=== PATIENT | male | born 1945 | race Caucasian/White ===

== ENCOUNTER 2020-12-28 11:19 | Emergency (ER) | payer MEDICARE, MEDICAID ==
[~2020-12-28] VITALS: Ht 172.7 cm; Wt 101.2 kg
[2020-12-28] MEDS ORDERED: IV NS 0.9% 1,000 ML BAG IV ONE (12:00)
--- NOTE | 2020-12-28 12:01 | NUR ---
[facility] TO ER BED 7. AAOX4. NOT IN RESP DISTRESS. BASELINE O2 USER VIA NC @ 3LPM. BED BOUND. BROUGHT INFOR FEVER THAT STARTED YESTERDAY. PT IS AEBRILE AT THE TIME OF ASSESSMENT. HE WAS GIVEN TYLENOL 650MG @ THE SNF @ 1000. PT IS NOTED SATTING @ 98% ON 3LPM W/O DISTRESS. WAS AT THE BEDSIDE FOR EVAL. ORDERS RECEIVED, NOTED AND CARRIED OUT.
[2020-12-28 12:03] LABS: BASOPHILS % (AUTO) 0.6 % (0.0-2.0); EOSINOPHILS % (AUTO) 2.8 % (0.0-6.0); HEMATOCRIT 34 % (39-51); LYMPHOCYTES # (AUTO) 0.3 K/uL (0.8-4.8); LYMPHOCYTES % (AUTO) 7.2 % (20.0-44.0); MEAN CORPUSCULAR HGB CONC 33 g/dl (31.0-36.0); MEAN CORPUSCULAR VOLUME 93 fL (80-96); MONOCYTES # (AUTO) 0.5 K/uL (0.1-1.30); MONOCYTES % (AUTO) 11.6 % (2.0-12.0); NEUTROPHILS # (AUTO) 3.6 K/uL (1.8-8.9); NEUTROPHILS % (AUTO) 77.8 % (43.0-81.0); PLATELET COUNT (AUTO) 451 K/uL (150-450); WHITE BLOOD COUNT (AUTO) 4.7 K/uL (4.3-11.0)
[2020-12-28 12:12] LABS: CALCIUM, SERUM 8.6 mg/dL (8.5-10.1); CARBON DIOXIDE 28 mmol/L (21-32); CHLORIDE 98 mmol/L (98-107); CREATININE 0.5 mg/dL (0.6-1.3); GLUCOSE 111 mg/dL (74-106); SODIUM SERUM 136 mmol/L (136-145); UREA NITROGEN, BLOOD 13 mg/dL (7-18)
[2020-12-28 12:18] LABS: ALANINE AMINOTRANSFERASE 18 U/L (12-78); ALBUMIN 2.1 g/dL (3.4-5.0); ALKALINE PHOSPHATASE 66 U/L (46-116); ASPARTATE AMINOTRANSFERASE 17 U/L (15-37); BILIRUBIN,DIRECT 0.1 mg/dL (0.0-0.2); BILIRUBIN,TOTAL 0.4 mg/dL (0.2-1.0); TOTAL PROTEIN, SERUM 6.9 g/dL (6.4-8.2)
[2020-12-28] MEDS ORDERED: LIDOCAINE 2% JEL UROJET 10 ML MM ONE (12:23)
--- NOTE | 2020-12-28 12:30 | NUR ---
URINE COLLECTED VIA IN & OUT CATH WITH STRICT STERILE TECHNIQUE OBSERVED DURING THE PROCEDURE.
[2020-12-28 13:11] LABS: BILIRUBIN,URINE NEGATIVE (NEGATIVE); COLOR,URINE YELLOW (YELLOW); LEUKOCYTE ESTERASE ,URINE NEGATIVE (NEGATIVE); NITRITE, URINE NEGATIVE (NEGATIVE); PH,URINE 5.5 (5.0-8.0); PROTEIN,URINE NEGATIVE (NEGATIVE); UGLUCOSE NEGATIVE (NEGATIVE); UROBILINOGEN,URINE 0.2 EU/dL (0.2)
--- NOTE | 2020-12-28 13:36 | NUR ---
TITI FERNANDO [phone] SPEAKING WITH PAWEL
--- NOTE | 2020-12-28 13:42 | NUR ---
CALLED TRANSPORT [facility] WITH 30 MIN ETA PER SHEEBA.
--- NOTE | 2020-12-28 14:30 | NUR ---
IV removed. Catheter intact and site benign. Pressure and 4x4 applied to site. No bleeding noted.
--- NOTE | 2020-12-28 14:30 | NUR ---
REPORT GIVEN TO SNEHAL DEMARCO FOR MAGDIEL
--- NOTE | 2020-12-28 14:33 | NUR ---
[id number] AT BEDSIDE FOR PT TRANSPORT BACK TO [facility]. REPORT GIVEN.
[2020-12-28 15:02] VITALS: BP 121/64
--- NOTE | 2020-12-28 15:02 | NUR ---
PT LEFT PN SHAHNAZ WITH 2 SEAFOOD MANAGER IN STABLE CONDITION. NAD NOTED.
== END 2020-12-28 15:03 ==
LOC: ER 11:25
DX: R50.9 Fever, unspecified (principal); Z20.822 Contact with and (suspected) exposure to COVID-19; I69.354 Hemiplegia and hemiparesis following cerebral infarction affecting left non-dominant side; Z85.89 Personal history of malignant neoplasm of other organs and systems; I48.91 Unspecified atrial fibrillation; Z79.01 Long term (current) use of anticoagulants; J44.9 Chronic obstructive pulmonary disease, unspecified; F41.9 Anxiety disorder, unspecified; K21.9 Gastro-esophageal reflux disease without esophagitis; R91.8 Other nonspecific abnormal finding of lung field; R94.31 Abnormal electrocardiogram [ECG] [EKG]
CPT/HCPCS: 36415; 71045; 80048; 80076; 81003; 83605; 84484; 85025; 87040 ×2; 87426; 93005; 96360; 99285; J3490; J7030; C9803

== ENCOUNTER 2021-01-05 10:00 | Inpatient (IN) | payer MEDICARE, OTHER ==
[~2021-01-05] VITALS: Ht 175.3 cm; Wt 62.6 kg
[2021-01-05] VITALS (19 sets, daily range): BP systolic 86–124; BP diastolic 46–88
--- NOTE | 2021-01-05 10:00 | NUR ---
PT [id number] [facility] C/O SOB AND LOW O2 DESATURATION. 88% ON RA. PT IS AAOX3, NOTED MILD RESPIRATORY DISTRESS, HOOKED TO O2 VIA NC AT 4 LPM AND SHUTTLE THREADER, KEPT RESTED AND COMFORTABLE. WILL CONTINUE TO MONITOR.
--- NOTE | 2021-01-05 10:00 | NUR ---
PT IV LINE ESTABLISHED BLOOD DRAWN AND SENT TO LAB.
--- NOTE | 2021-01-05 10:01 | NUR ---
SEEN AND EXAMINED BY .
--- NOTE | 2021-01-05 10:14 | NUR ---
MOVE SHEET SUBMITTED AND CALLED FOR TELE BED.
--- NOTE | 2021-01-05 10:26 | NUR ---
COVID SPECIMEN OBTAINED AND SENT TO LAB.
[2021-01-05 10:27] LABS: BASOPHILS % (AUTO) 0.7 % (0.0-2.0); EOSINOPHILS % (AUTO) 0.1 % (0.0-6.0); HEMATOCRIT 34 % (39-51); LYMPHOCYTES # (AUTO) 0.4 K/uL (0.8-4.8); LYMPHOCYTES % (AUTO) 6.6 % (20.0-44.0); MEAN CORPUSCULAR HGB CONC 33 g/dl (31.0-36.0); MEAN CORPUSCULAR VOLUME 92 fL (80-96); MONOCYTES # (AUTO) 0.4 K/uL (0.1-1.30); MONOCYTES % (AUTO) 6.5 % (2.0-12.0); NEUTROPHILS # (AUTO) 5.3 K/uL (1.8-8.9); NEUTROPHILS % (AUTO) 86.1 % (43.0-81.0); PLATELET COUNT (AUTO) 566 K/uL (150-450); RED BLOOD CELL COUNT(AUTO) 3.66 MIL/uL (4.5-6.0); WHITE BLOOD COUNT (AUTO) 6.2 K/uL (4.3-11.0)
[2021-01-05] MEDS ORDERED: LACT-209 GT (10:38)
[2021-01-05] MEDS ORDERED: CHOL100062 PO (10:38)
[2021-01-05] MEDS ORDERED: CETI-108 GT (10:38)
[2021-01-05] MEDS ORDERED: HYDR4TAB57 GT (10:38)
[2021-01-05] MEDS ORDERED: GABA-532 GT (10:38)
[2021-01-05] MEDS ORDERED: LANS30CA56 GT (10:38)
[2021-01-05] MEDS ORDERED: AMIN30LI27 GT (10:38)
[2021-01-05] MEDS ORDERED: POVI100M TP (10:38)
[2021-01-05] MEDS ORDERED: HYDR28.32 TP (10:38)
[2021-01-05] MEDS ORDERED: DULO30CA2 GT (10:38)
[2021-01-05] MEDS ORDERED: POLY17PO4 GT (10:38)
[2021-01-05] MEDS ORDERED: FERR300L GT (10:38)
[2021-01-05] MEDS ORDERED: CLOT12CR TP (10:38)
[2021-01-05] MEDS ORDERED: ACET650S26 GT ×2 (10:38)
[2021-01-05] MEDS ORDERED: DOCU50LI GT (10:38)
[2021-01-05] MEDS ORDERED: LIDO30JE4 MM (10:38)
[2021-01-05] MEDS ORDERED: ONDA4TAB5 GT (10:38)
[2021-01-05] MEDS ORDERED: CYAN500T64 GT (10:38)
[2021-01-05] MEDS ORDERED: NORM210S MM (10:38)
[2021-01-05] MEDS ORDERED: APIX5TAB GT (10:38)
[2021-01-05 10:42] LABS: ALANINE AMINOTRANSFERASE 22 U/L (12-78); ALBUMIN 2.1 g/dL (3.4-5.0); ALKALINE PHOSPHATASE 63 U/L (46-116); ASPARTATE AMINOTRANSFERASE 24 U/L (15-37); BILIRUBIN,DIRECT 0.1 mg/dL (0.0-0.2); BILIRUBIN,TOTAL 0.4 mg/dL (0.2-1.0); CALCIUM, SERUM 8.6 mg/dL (8.5-10.1); CARBON DIOXIDE 28 mmol/L (21-32); CHLORIDE 100 mmol/L (98-107); CREATININE 0.8 mg/dL (0.6-1.3); GLUCOSE 132 mg/dL (74-106); POTASSIUM 4.6 mmol/L (3.5-5.1); SODIUM SERUM 133 mmol/L (136-145); UREA NITROGEN, BLOOD 17 mg/dL (7-18)
--- NOTE | 2021-01-05 10:48 | NUR ---
CALLED [facility], SPEAKING WITH DR. COFFMAN.
[2021-01-05] MEDS ORDERED: DEXAMETHASONE SOD PHOSPHATE 10 MG/ML VIAL ONE (10:53)
[2021-01-05] MEDS ORDERED: VANCOMYCIN 1 GM in IV D5W 250 ML IV ONE (11:00)
[2021-01-05] MEDS ORDERED: DEXAMETHASONE SOD PHOSPHATE 10 MG/ML VIAL IV ONE (11:00)
[2021-01-05] MEDS ORDERED: PIPERACILLIN /TAZOBACTAM 3.375 G in IV D5W 50 ML IV ONE (11:00)
--- NOTE | 2021-01-05 12:13 | NUR ---
PAN FROM [facility] CALLED ABOUT PT.
[2021-01-05] MEDS ORDERED: ONDANSETRON HCL/PF 4 MG/2 ML VIAL IVP PRN (12:30)
[2021-01-05] MEDS ORDERED: ACETAMINOPHEN 325 MG TABLET PO PRN (12:30)
[2021-01-05] MEDS ORDERED: HYDROCODONE/APAP 5/325MG TABLET GT PRN (12:30)
[2021-01-05] MEDS ORDERED: MORPHINE SULFATE INJ 2 MG/ML DISP.SYRIN IV PRN (12:30)
[2021-01-05] MEDS ORDERED: ACETAMINOPHEN 650 MG/20.3 ML UDC GT PRN ×2 (12:30)
[2021-01-05] MEDS ORDERED: CT SWABBABLE VALVE TRANS SET 1 EA INFUS.SET MC ONE (12:33)
[2021-01-05] MEDS ORDERED: IOHEXOL-350 100 ML VIAL IV ONE (12:33)
[2021-01-05] MEDS ORDERED: IV NS 0.9% 250 ML IV ONE (12:33)
--- NOTE | 2021-01-05 12:50 | NUR ---
PT IS WHEELED TO CT SCAN VIA [facility].
[2021-01-05] MEDS: GABAPENTIN 100 MG CAPSULE GT SCH ×2 (13:00→17:12)
--- NOTE | 2021-01-05 13:30 | NUR ---
RT PT CAME IN ON NC 6L, REFUSES TO COUGH, REMOVING OXYGEN REFUSES TO BE SUCTIONED AWARE STARTED OH HFNC
--- NOTE | 2021-01-05 13:30 | NUR ---
PT O2 SAT DROP TO 80% ON NC AT 6LPM REPORTED TO LEXX FU.
--- NOTE | 2021-01-05 13:35 | NUR ---
PT ON HIGH FLOW NC ORDERED BY .
--- NOTE | 2021-01-05 13:40 | NUR ---
CALLED ICU FOR REPORT RN NOT AVAILABLE. WILL CALL BACK AFTER 10MINS.
--- NOTE | 2021-01-05 13:48 | NUR ---
GOT ICU BED 257
--- NOTE | 2021-01-05 14:00 | NUR ---
REPORT GIVEN TO SNEHAL GREER FOR MAGDIEL.
--- NOTE | 2021-01-05 14:30 | NUR ---
GAME MODERATOR NOTES PATIENT ADMITTED FROM ER ON HFNC 100% FLOW RATE. PATIENT A/O WITH CONFUSION, NO ACUTE RESPIRATORY DISTRESS. BEDSIDE MONITOR SHOWS HR 84 BP 123/76 RR 27. O2 SAT 100% WITH HIGH FLOW. ADMISSION ASSESSMENT COMPLETED. 2 RN SKIN ASSESSMENT COMPLETED AND PICTURE TAKEN PER POLICY AND DRESSING APPLIED. WOUND CONSULT ORDERED. PÉREZ CATHETER INSERTED FOR STRICT I&O. GTUBE INTACT AND CURRENTLY PT IS NPO. SCD IS APPLIED FOR DVT PREVENTION PROTOCOL. CHECKED IV SITE AND FLUSHED WELL. BILATERAL SOFT WRIST RESTRAINT IS APPLIED DUE TO PT IS AGITATED AND ATTEMPT TO REMOVE HIGH FLOW CANULA. OFFERED SUCTION BUT PT REFUSED. SPOKE WITH DAUGHTER(KHALIDA) [phone] AND SHE STATED THAT PT IS FULL CODE.
[2021-01-05] MEDS: methylPREDNISolone SOD SUCC 40 MG/ML VIAL IV SCH ×2 (15:15→17:02)
[2021-01-05] MEDS: PANTOPRAZOLE 40 MG VIAL IV SCH (15:15)
[2021-01-05] MEDS: IV NS 0.9% 250 ML IV PRN (16:00)
[2021-01-05 16:28] LABS: FERRITIN 107 ng/mL (8-388)
[2021-01-05 16:51] LABS: IRON, SERUM 16 ug/dl (50-175); TOTAL IRON BINDING CAPACITY 272 ug/dl (250-450)
[2021-01-05] MEDS ORDERED: APIXABAN 5 MG TABLET GT SCH (17:00)
[2021-01-05] MEDS: PIPERACILLIN /TAZOBACTAM 3.375 G in IV D5W 50 ML IV SCH ×2 (17:01→23:53)
[2021-01-05] MEDS: DOCUSATE SODIUM LIQ 100 MG/10 ML UDC GT SCH (17:12)
--- NOTE | 2021-01-05 17:37 | NUR ---
RN NOTE CHECKED RESTRAINT SITE. OFFERED RELEASE AND PROVIDED PASSIVE RANGE OF MOTION. VSS. WILL KEEP MONITORING AT THIS TIME.
--- NOTE | 2021-01-05 18:00 | NUR ---
RN NOTES ECHO SCAN DONE VIA US DELICATESSEN CLERK, EF-25%-30% . US TECH WILL NOTIFY YOUTH SPECIALIST Dr SMITH ABOUT ECHO RESULT.
--- NOTE | 2021-01-05 18:55 | NUR ---
RN NOTE REASSESSED THE PATIENT. NO RESPIRATORY DISTRESS NOTED. HIGH FLOW RATE IS SAME FROM PREVIOUS RATE. PT'S O2 SAT IS 99%. VSS. RESTING CALM AND STABLE. ECHO IS DONE AND EF 25%. [employer] WILL NOTIFY TO MD ABOUT THE RESULT.
[2021-01-05] MEDS: VANCOMYCIN 0.75 GM in IV D5W 250 ML IV SCH (22:24)
[2021-01-05] MEDS: DULOXETINE HCL 30 MG CAPSULE.DR GT SCH (22:24)
[2021-01-06] VITALS (34 sets, daily range): BP systolic 91–129; BP diastolic 45–75
[2021-01-06 04:32] LABS: HEMATOCRIT 34 % (39-51); HEMOGLOBIN 11.2 g/dL (13.5-17.5); LYMPHOCYTES # (AUTO) 0.3 K/uL (0.8-4.8); LYMPHOCYTES % (AUTO) 9.2 % (20.0-44.0); MEAN CORPUSCULAR HGB CONC 33 g/dl (31.0-36.0); MEAN CORPUSCULAR VOLUME 92 fL (80-96); MONOCYTES # (AUTO) 0.1 K/uL (0.1-1.30); MONOCYTES % (AUTO) 3.4 % (2.0-12.0); NEUTROPHILS # (AUTO) 2.8 K/uL (1.8-8.9); NEUTROPHILS % (AUTO) 87.4 % (43.0-81.0); PLATELET COUNT (AUTO) 556 K/uL (150-450); RED BLOOD CELL COUNT(AUTO) 3.73 MIL/uL (4.5-6.0); WHITE BLOOD COUNT (AUTO) 3.2 K/uL (4.3-11.0)
[2021-01-06 04:39] LABS: ALBUMIN 1.9 g/dL (3.4-5.0); BILIRUBIN,TOTAL 0.5 mg/dL (0.2-1.0); CALCIUM, SERUM 8.7 mg/dL (8.5-10.1); CREATININE 0.8 mg/dL (0.6-1.3); POTASSIUM 4.6 mmol/L (3.5-5.1)
[2021-01-06 04:46] LABS: THYROID STIMULATING HORMONE 0.818 uIU/mL (0.358-3.74)
[2021-01-06 04:56] LABS: D-DIMER 0.75 mg/L(FEU (0.17-0.50)
[2021-01-06] MEDS: PIPERACILLIN /TAZOBACTAM 3.375 G in IV D5W 50 ML IV SCH ×3 (05:43→17:24)
--- NOTE | 2021-01-06 07:30 | NUR ---
ICU/RN PT IS AWAKE ,ALERT,ORIENTED.ON HI-FLOW 02,SAT O2-100%.V/S STABLE ,AFEBRILE.NO PAIN REPORTED AT THIS TIME.F/C DRAINING WITH YELLOW URINE.G-TUBE CLAMPED.PT IS NPO.NEED SWALLOW EVAL.LABS REVIEW. NOTIFIED.
--- NOTE | 2021-01-06 08:15 | NUR ---
WOUND CARE CONSULT: RECEIVED CONSULT FROM LEATHER BELT MAKER. PT PRESENTS WITH MULTIPLE WOUNDS AND SKIN ISSUES PRESENT ON ADMISSION INCLUDING REDNESS WITH OPEN SKIN TO RT SHOULDER, DRY CRUSTING TO RT NECK AREA, SACRAL STAGE 3 ULCER, RASH TO PERINEAL AREA, FRAGILE DISCOLORED SKIN TO EXTREMITIES AND FOOT WOUNDS WHICH ARE DRY. RECOMMEND SURGICAL AND DPM CONSULTS. RECOMMENDATIONS MADE FOR SKIN PROTECTION AND WOUND CARE. DISCUSSED WITH NURSING STAFF AND LEATHER BELT MAKER. FOAM IN USE FOR LOWER EXREMITY DRY WOUNDS AT THIS TIME. DEFER TO PMD FOR POSSIBLE SURGICAL AND DPM CONSULTS. PT IS ON SEBASTIAN ISOFLEX LOW AIRLOSS BED. IN AGREEMENT WITH PLAN OF CARE. Addendum: 01/06/21 at 0818 by MICHELE PEREZ WNDNU Amended: Links added.
[2021-01-06] MEDS: FERROUS SULFATE UDC 300 MG/5 ML UDC PO SCH (08:27)
[2021-01-06] MEDS: CYANOCOBALAMIN 500 MCG TABLET GT SCH (08:27)
[2021-01-06] MEDS: methylPREDNISolone SOD SUCC 40 MG/ML VIAL IV SCH ×3 (08:27→16:28)
[2021-01-06] MEDS: DOCUSATE SODIUM LIQ 100 MG/10 ML UDC GT SCH ×2 (08:27→16:28)
[2021-01-06] MEDS: CHOLECALCIFEROL 1,000 UNIT TABLET (VIT D3) PO SCH (08:27)
[2021-01-06] MEDS: PANTOPRAZOLE 40 MG VIAL IV SCH (08:27)
[2021-01-06] MEDS: cetrizine 10 MG TABLET GT SCH (08:27)
[2021-01-06] MEDS: POLYETHYLENE GLYCOL 3350 17 GM POWD.PACK GT SCH (08:27)
[2021-01-06] MEDS: GABAPENTIN 100 MG CAPSULE GT SCH ×3 (08:28→16:28)
[2021-01-06] MEDS: ASPIRIN 81 MG TAB.CHEW PO SCH (08:28)
[2021-01-06] MEDS: ENOXAPARIN SODIUM 60 MG/0.6 ML DISP.SYRIN SQ SCH ×2 (08:29→21:00)
[2021-01-06] MEDS ORDERED: Z GUARD REMEDY 2 OZ OINT TP PRN (08:30)
[2021-01-06] MEDS: OSMOLITE 1.2 CAL 1,000 ML LIQUID GT PRN (08:57)
--- NOTE | 2021-01-06 09:00 | NUR ---
ICU/RN DUE MEDS ARE GIVEN ORDERED. REPOSITION FOR COMFORT.
[2021-01-06] MEDS: VANCOMYCIN 0.75 GM in IV D5W 250 ML IV SCH ×2 (10:04→23:00)
[2021-01-06] MEDS: HYDROGEL DRESSING 90 GM TUBE TP SCH (10:04)
[2021-01-06] MEDS: CLOTRIMAZOLE 1% 15 GM TUBE TP SCH ×2 (10:05→16:29)
[2021-01-06] MEDS: Z GUARD REMEDY 2 OZ OINT TP SCH (10:06)
--- NOTE | 2021-01-06 10:54 | NUR ---
WOUND CARE: PER DR FERNANDO, PODIATRY CONSULT CALLED TO DR SINGH.
[2021-01-06] MEDS ORDERED: ALBUTEROL FS 2.5 MG/0.5 ML VIAL.NEB NEB PRN (11:00)
[2021-01-06] MEDS ORDERED: IPRATROPIUM NEB FS 0.5 MG/2.5 ML AMPUL.NEB NEB PRN (11:00)
--- NOTE | 2021-01-06 11:00 | NUR ---
ICU/RN DR FERNANDO SEEN THE PT. NEW ORDERS RECEIVED.
[2021-01-06] MEDS: ALBUTEROL FS 2.5 MG/0.5 ML VIAL.NEB NEB SCH ×3 (11:01→20:16)
[2021-01-06] MEDS: IPRATROPIUM NEB FS 0.5 MG/2.5 ML AMPUL.NEB NEB SCH ×3 (11:01→20:16)
[2021-01-06] MEDS: HYDROMORPHONE 1 MG/1 ML DISP.SYRIN IV PRN (11:54)
[2021-01-06] MEDS: IV NS 0.9% 250 ML IV PRN (15:41)
--- NOTE | 2021-01-06 16:29 | NUR ---
ICU/RN PT REFUSED ALL EVENING MEDS AND PM CARE. CHARGE NURSE NOTIFIED.MD WILL BE NOTIFIED.
--- NOTE | 2021-01-06 19:27 | NUR ---
PHYSICIAN OFFICE ASSISTANT OPENING NOTES: Rec'd pt in bed, A&Ox3. On 5LPM NC tolerating well. No resp distress noted. SR w/ PVC's on tele monitor. GT site intact, patent and flushed w/ Osmolite infusing at 40ml/hr. Minimal residual noted. Right hand #18, RAC #18 patent and flushed. Dressings c/d/i. Right chest wall portacath noted. Yi catheter in place, patent and draining urine via gravity. No pain noted at this time. Safety measures in place. Will continue to monitor.
--- NOTE | 2021-01-06 20:34 | NUR ---
FILM EDITOR SUPERVISOR NOTE: Pt refused breathing tx. Risks and benefits explained by RT and RN and pt continued to refuse.
[2021-01-06] MEDS: DULOXETINE HCL 30 MG CAPSULE.DR GT SCH (21:57)
--- NOTE | 2021-01-06 21:57 | NUR ---
SOAKER SODA WORKER NOTE: Pt refused all medications tonight including IV ATB. Explained risks and benefits of medications and continued to refuse. 2127: Paged Dr. Rosado and gave update on pt's refusal. Dr. Rosado stated to "inform his daughter". 2129: Called daughterJeanne who spoke with pt. 2155: Pt still refusing all medications. Dr. Rosado updated. Charge nurse also aware.
[2021-01-07] VITALS (17 sets, daily range): BP systolic 91–139; BP diastolic 34–83
--- NOTE | 2021-01-07 00:15 | NUR ---
AND RESCUE FIRE FIGHTER CRASH FIRE NOTE: Pt refused bed bath and linen change at this time.
[2021-01-07] MEDS: ALBUTEROL FS 2.5 MG/0.5 ML VIAL.NEB NEB SCH ×4 (01:14→19:25)
[2021-01-07] MEDS: IPRATROPIUM NEB FS 0.5 MG/2.5 ML AMPUL.NEB NEB SCH ×4 (01:14→19:25)
--- NOTE | 2021-01-07 03:37 | NUR ---
AIRPLANE REFUELER NOTE: Pt's rivera noted to be leaking, pt wet. Bed bath & linen change rendered. Pt verbally abusive during cleaning. Charge nurse at bedside. Pt yelling and screaming, "get the fuck out of my room" and "shut the fuck up". Explained to pt that this type of behavior is not tolerated and pt stated "I pay your wages, get the fuck out of my room". Pt now clean and resting. Will continue to monitor.
--- NOTE | 2021-01-07 04:17 | NUR ---
CONTRACT CLERK NOTE: Pt refused 0400 temp check
[2021-01-07 04:29] LABS: HEMATOCRIT 34 % (39-51); HEMOGLOBIN 10.7 g/dL (13.5-17.5); LYMPHOCYTES # (AUTO) 0.3 K/uL (0.8-4.8); MEAN CORPUSCULAR HGB CONC 32 g/dl (31.0-36.0); MEAN CORPUSCULAR VOLUME 92 fL (80-96); MONOCYTES # (AUTO) 0.8 K/uL (0.1-1.30); MONOCYTES % (AUTO) 7.4 % (2.0-12.0); NEUTROPHILS % (AUTO) 89.6 % (43.0-81.0); PLATELET COUNT (AUTO) 577 K/uL (150-450); RED BLOOD CELL COUNT(AUTO) 3.65 MIL/uL (4.5-6.0); WHITE BLOOD COUNT (AUTO) 11.1 K/uL (4.3-11.0)
[2021-01-07 04:38] LABS: CREATININE 0.9 mg/dL (0.6-1.3); POTASSIUM 5.4 mmol/L (3.5-5.1)
[2021-01-07] MEDS: PIPERACILLIN /TAZOBACTAM 3.375 G in IV D5W 50 ML IV SCH ×4 (05:12→17:05)
--- NOTE | 2021-01-07 07:30 | NUR ---
FAST FOOD ASSISTANT RESTAURANT MANAGER OPENING NOTE PT IN BED, A/Ox3, BREATHING 4L NC, SPO2 88-90%. INCREASED TO 5L, WILL MONITOR, NO SOB OR RESP DISTRESS NOTED, BREATHING EVEN AND UNLABORED. PT DENIES PAIN. PT ON BEDSIDE MONITOR SR W OCCASIONAL PVC's. PT GTUBE AUSCULTATED FOR POSITIVE PLACEMENT, FLUSHED, AND PATENT, NO RESIDUALS, CURRENTLY ON GTF OSMOLITE 1.2 @ 40ML/HR. PT RT HAND #18 FLUSHED AND INTACT, SL. PT RAC #18 FLUSHED AND INTACT, TKO. PT RCW PORT A CATH INTACT. PT PÉREZ CATH DRAINING CLEAR YELLOW URINE VIA GRAVITY. PT SACRAL WOUND NOTED, DRSG C/D/I. ALL PT SAFETY PRECAUTIONS IN PLACE, WILL CONT TO MONITOR
[2021-01-07] MEDS ORDERED: FUROSEMIDE 20 MG/2 ML VIAL IV ONE (08:30)
[2021-01-07] MEDS: ENOXAPARIN SODIUM 60 MG/0.6 ML DISP.SYRIN SQ SCH (08:40)
[2021-01-07] MEDS: PANTOPRAZOLE 40 MG VIAL IV SCH (08:41)
[2021-01-07] MEDS: CYANOCOBALAMIN 500 MCG TABLET GT SCH (08:41)
[2021-01-07] MEDS: ASPIRIN 81 MG TAB.CHEW PO SCH (08:41)
[2021-01-07] MEDS: cetrizine 10 MG TABLET GT SCH (08:41)
[2021-01-07] MEDS: methylPREDNISolone SOD SUCC 40 MG/ML VIAL IV SCH ×3 (08:42→17:04)
[2021-01-07] MEDS: GABAPENTIN 100 MG CAPSULE GT SCH ×3 (08:42→17:04)
[2021-01-07] MEDS: DOCUSATE SODIUM LIQ 100 MG/10 ML UDC GT SCH ×2 (08:42→17:05)
[2021-01-07] MEDS: POLYETHYLENE GLYCOL 3350 17 GM POWD.PACK GT SCH (08:42)
[2021-01-07] MEDS: CHOLECALCIFEROL 1,000 UNIT TABLET (VIT D3) PO SCH (08:42)
[2021-01-07] MEDS: FERROUS SULFATE UDC 300 MG/5 ML UDC PO SCH (08:42)
[2021-01-07] MEDS: CLOTRIMAZOLE 1% 15 GM TUBE TP SCH ×2 (08:43→17:05)
[2021-01-07] MEDS: HYDROGEL DRESSING 90 GM TUBE TP SCH (08:43)
[2021-01-07] MEDS: Z GUARD REMEDY 2 OZ OINT TP SCH (08:43)
[2021-01-07 09:07] LABS: *SPE A/G RATIO 0.6 (0.7-1.7); *SPE ALBUMIN 2.2 g/dL (2.9-4.4); *SPE ALPHA-1-GLOBULIN 0.4 g/dL (0.0-0.4); *SPE ALPHA-2-GLOBULIN 1.1 g/dL (0.4-1.0); *SPE BETA GLOBULIN 0.8 g/dL (0.7-1.3); *SPE M-SPIKE 0.8 g/dL (Not Observed); *SPEGAMMA GLOBULIN 1.7 g/dL (0.4-1.8)
--- NOTE | 2021-01-07 09:30 | NUR ---
RN N OTE PT REFUSING CERTAIN MEDS AND SPEECH EVAL. NOT COMPLIANT WITH CERTAIN TREATMENT PROCEDURES, A LOT OF PT EDUCATION HAS TAKEN PLACE
[2021-01-07] MEDS: VANCOMYCIN 0.75 GM in IV D5W 250 ML IV SCH (10:57)
[2021-01-07] MEDS: APIXABAN 5 MG TABLET PO SCH ×2 (10:58→21:17)
--- NOTE | 2021-01-07 11:45 | NUR ---
RN NOTE PT REPORT GIVEN TO SNEHAL LUIS
--- NOTE | 2021-01-07 13:00 | NUR ---
RN NOTE PT TRANSFERRED TO 314-1. SNEHAL LUIS, RECEIVED PT. PT STABLE, NC 5L, NO RESP DISTRESS OR SOB
[2021-01-07] MEDS: HYDROMORPHONE 1 MG/1 ML DISP.SYRIN IV PRN (13:42)
[2021-01-07] MEDS ORDERED: APIXABAN 5 MG TABLET PO SCH (17:00)
--- NOTE | 2021-01-07 20:00 | NUR ---
ADVERTISING LAYOUT WORKER OPENING NOTE: RECEIVED PATIENT AWAKE IN BED, BED IN LOW POSITION, CALL LIGHTS WITHIN REACH, NO COMPLAIN OF PAIN AND DISCOMFORT AT THIS TIME, A/OX 3 ON PÉREZ CATHETER WITH NG TUBE at 40ML PER HOUR INFUSING WELL, ON TELE MONITORING WITH, READING OF SR WITH PVC HR 68, NO COMPLAIN OF ANY DISCOMFORT ALL NEEDS MET, WILL CONTINUE TO MONITOR.
[2021-01-07] MEDS: DULOXETINE HCL 30 MG CAPSULE.DR GT SCH (21:16)
[2021-01-07] MEDS: VANCOMYCIN 1 GM in IV D5W 250 ML IV SCH (21:18)
--- NOTE | 2021-01-07 22:00 | NUR ---
MS RN OPENING NOTE PT AWAKE IN BED AT THIS TIME. AOX3, ABLE TO MAKE NEEDS KNOWN. NO SOB NOTED. NO C/O PAIN AT THIS TIME, NO S/O ANY ACUTE DISTRESS NOTED. RESPIRATIONS EVEN AND UNLABORED, STABLE ON 3L OXYGEN VIA NC . IV ACCESS RAC #18 AND RH #18 . PÉREZ CATHETER DRAING AND PEG TUNBE INTACT RUNNING AT 40ML/HR. SAFETY PRECAUTIONS IN PLACE AND MAINTAINED AT ALL TIMES. BED IN LOWEST LOCKED POSITION, HOB ELEVATED, SIDE RAILS UP X2, CALL LIGHT AND TABLE WITHIN REACH. WILL CONTINUE TO MONITOR.
--- NOTE | 2021-01-07 23:00 | NUR ---
VEHICLE DISMANTLER OPENING NOTES: PATIENT TRASFER UNDER THE CARE OF SNEHAL WU , NO COMPLAIN OF PAIN AND DISCOMFORT, ON STABLE CONDITION, WILL CONTINUE TO MONITOR
[2021-01-08] VITALS: BP 136/65
[2021-01-08] MEDS: PIPERACILLIN /TAZOBACTAM 3.375 G in IV D5W 50 ML IV SCH ×5 (00:46→23:57)
[2021-01-08] MEDS: ALBUTEROL FS 2.5 MG/0.5 ML VIAL.NEB NEB SCH ×4 (01:30→19:30)
[2021-01-08] MEDS: IPRATROPIUM NEB FS 0.5 MG/2.5 ML AMPUL.NEB NEB SCH ×4 (01:30→19:30)
[2021-01-08 04:00] VITALS: BP 153/96
[2021-01-08] MEDS: IV NS 0.9% 250 ML IV PRN (06:00)
--- NOTE | 2021-01-08 06:00 | NUR ---
RN CLOSING NOTE PT IS IN BED AND AWAKE. NO SOB, NO PAIN. WILL ENDORSE TO ONCOMING NURSE FOR MAGDIEL..
[2021-01-08 07:13] LABS: HEMATOCRIT 39 % (39-51); HEMOGLOBIN 12.4 g/dL (13.5-17.5); LYMPHOCYTES # (AUTO) 0.4 K/uL (0.8-4.8); LYMPHOCYTES % (AUTO) 3.7 % (20.0-44.0); MEAN CORPUSCULAR HGB CONC 32 g/dl (31.0-36.0); MEAN CORPUSCULAR VOLUME 92 fL (80-96); MONOCYTES # (AUTO) 0.5 K/uL (0.1-1.30); MONOCYTES % (AUTO) 4.8 % (2.0-12.0); NEUTROPHILS # (AUTO) 8.9 K/uL (1.8-8.9); NEUTROPHILS % (AUTO) 91.5 % (43.0-81.0); PLATELET COUNT (AUTO) 621 K/uL (150-450); RED BLOOD CELL COUNT(AUTO) 4.25 MIL/uL (4.5-6.0); WHITE BLOOD COUNT (AUTO) 9.7 K/uL (4.3-11.0)
[2021-01-08 07:27] LABS: CALCIUM, SERUM 9.3 mg/dL (8.5-10.1); CREATININE 0.8 mg/dL (0.6-1.3); POTASSIUM 4.3 mmol/L (3.5-5.1)
--- NOTE | 2021-01-08 07:33 | NUR ---
RN NOTES ENDORSED BY COUNTY PROGRAM TECHNICIAN RN IN BED RESTING, AWAKE AND VERBALLY RESPONSIVE. BREATHING EVEN AND UNLABORED, ON 3L O2 VIA NC, NO RESPIRATORY DISTRESS. IV LINE ON RIGHT HAND PULLED OUT BY PATIENT PRIOR TO REPORT. GT INTACT W/ OSMOLITE FEEDING. PÉREZ CATH IN PLACE DRAINING LIGHT WILTON-COLORED URINE. SAFETY MEASURES IN PLACE. WILL CONTINUE TO MONITOR.
[2021-01-08 08:00] VITALS: BP 133/68
[2021-01-08 08:59] LABS: CHOLESTEROL 179 mg/dL (<200); HDL CHOLESTEROL 35 mg/dL (40-60); LDL 125 mg/dL (0-99); TRIGLYCERIDES 72 mg/dL (30-150)
[2021-01-08] MEDS: CLOTRIMAZOLE 1% 15 GM TUBE TP SCH ×2 (09:00→16:23)
[2021-01-08] MEDS: Z GUARD REMEDY 2 OZ OINT TP SCH (09:00)
[2021-01-08] MEDS: HYDROGEL DRESSING 90 GM TUBE TP SCH (09:00)
--- NOTE | 2021-01-08 10:40 | NUR ---
RN NOTES SPOKE W/ LOS, PHARMACIST; INFORMED ABOUT PATIENT'S POSITIVE MRSA NARES RESULT. RECOMMENDED BACTROBAN TOP SUMMER FOR MRSA OF R NARE.
[2021-01-08] MEDS: GABAPENTIN 100 MG CAPSULE GT SCH ×3 (10:48→16:22)
[2021-01-08] MEDS: PANTOPRAZOLE 40 MG/PACK PACK GT SCH (10:48)
[2021-01-08] MEDS: POLYETHYLENE GLYCOL 3350 17 GM POWD.PACK GT SCH (10:48)
[2021-01-08] MEDS: APIXABAN 5 MG TABLET GT SCH ×2 (10:49→16:22)
[2021-01-08] MEDS: CHOLECALCIFEROL 1,000 UNIT TABLET (VIT D3) GT SCH (10:49)
[2021-01-08] MEDS: methylPREDNISolone SOD SUCC 40 MG/ML VIAL IV SCH ×3 (10:50→16:22)
[2021-01-08] MEDS: cetrizine 10 MG TABLET GT SCH (10:50)
[2021-01-08] MEDS: FERROUS SULFATE UDC 300 MG/5 ML UDC GT SCH (10:50)
[2021-01-08] MEDS: CYANOCOBALAMIN 500 MCG TABLET GT SCH (10:50)
[2021-01-08] MEDS: ASPIRIN 81 MG TAB.CHEW GT SCH (10:50)
[2021-01-08] MEDS: DULOXETINE HCL 30 MG CAPSULE.DR GT SCH (10:50)
[2021-01-08] MEDS: VANCOMYCIN 1 GM in IV D5W 250 ML IV SCH ×2 (10:51→21:12)
[2021-01-08] MEDS: LOSARTAN POTASSIUM 50 MG TABLET GT SCH ×2 (10:51→21:12)
[2021-01-08] MEDS: DOCUSATE SODIUM LIQ 100 MG/10 ML UDC GT SCH ×2 (10:51→16:22)
[2021-01-08] MEDS: OSMOLITE 1.2 CAL 1,000 ML LIQUID GT PRN (12:28)
--- NOTE | 2021-01-08 12:34 | NUR ---
RN NOTES GT FLUSHED; FEEDING BAG CHANGED. GT SITE IS INTACT AND PATENT.
[2021-01-08] MEDS: MUPIROCIN OINT 2% 22 GM TUBE TP SCH ×2 (15:45→21:12)
[2021-01-08 16:00] VITALS: BP 128/68
--- NOTE | 2021-01-08 18:12 | NUR ---
RN NOTES SEEN RESTING IN BED, EYES CLOSED. GT W/ CONTINUOUS FEEDING OF OSMOLITE AT 40ML/HR; FLUSHED FOR PATENCY. IV LINE ON RAC/RFA INTACT AND PATENT. F/C DRAINING YELLOW-COLORED URINE. SAFETY MEASURES MAINTAINED.
--- NOTE | 2021-01-08 19:45 | NUR ---
TENTER FEEDER NOTES PATIENT RESTING IN BED. ALERT AND ORIENTED X 3. BREATHING EVEN AND UNLABORED ON 3L NC. SHOWS NO SIGNS OF ACUTE RESPIRATORY DISTRESS. NO ACUTE PAIN. IV CLEAN DRY AND INTACT. FC RUNNING CLEAN YELLOW URINE. GTUBE RUNNING OSMOLITE 40ML/HR. NO RESIDUALS. SAFETY PRECAUTIONS IN PLACE. BED IN LOWEST POSITION, LOCKED, AND CALL LIGHT KEPT WITHIN REACH. WILL CONTINUE TO MONITOR.
[2021-01-08 20:00] VITALS: BP 120/67
--- NOTE | 2021-01-08 21:50 | NUR ---
INTERNAL COMBUSTION ENGINE ASSEMBLER NOTES PATIENT REFUSING TO RECEIVE TREATMENT. IV IS CURRENTLY LEAKING AND REFUSED NEW IV. UNABLE TO GIVE BAG OF VANCOMYCIN. EDUCATED REASON FOR REQUIRING NEW IV PT CONTINUE TO REFUSED IV INSERTION.
[2021-01-08 22:00] VITALS: BP 120/67
[2021-01-09] VITALS: BP 114/61
[2021-01-09] MEDS: ALBUTEROL FS 2.5 MG/0.5 ML VIAL.NEB NEB SCH ×4 (01:06→19:30)
[2021-01-09] MEDS: IPRATROPIUM NEB FS 0.5 MG/2.5 ML AMPUL.NEB NEB SCH ×4 (01:06→19:30)
[2021-01-09 05:00] VITALS: BP 127/70
[2021-01-09] MEDS: PIPERACILLIN /TAZOBACTAM 3.375 G in IV D5W 50 ML IV SCH ×4 (05:12→23:21)
--- NOTE | 2021-01-09 06:34 | NUR ---
CASINO SLOT SUPERVISOR NOTES PATIENT, ASLEEP, ALERT AND ORIENTED X 3. BREATHING EVEN AND UNLABORED ON 3L NC. SHOWS NO SIGNS OF ACUTE RESPIRATORY DISTRESS. NO ACUTE PAIN. IV CLEAN DRY AND INTACT. FC RUNNING CLEAN YELLOW URINE. GTUBE RUNNING OSMOLITE 40ML/HR. NO RESIDUALS. REFUSED MORNING LAB DRAW. ALL DUE MEDICATIONS GIVEN. ALL NEEDS ATTENDED TO. SAFETY PRECAUTIONS IN PLACE. BED IN LOWEST POSITION, LOCKED, AND CALL LIGHT KEPT WITHIN REACH. WILL ENDORSE TO ONCOMING NURSE.
--- NOTE | 2021-01-09 07:20 | NUR ---
RN NOTES SEEN PATIENT RESTING IN BED, AWAKE AND VERBALLY RESPONSIVE. ALERT AND ORIENTED X 3, ABLE TO MAKE NEEDS KNOWN. BREATHING EVEN AND UNLABORED ON 3L NC, NO RESPIRATORY DISTRESS NOTED. IV LINE INTACT. F/C IN PLACE, DRAINING CLEAN YELLOW URINE. G-TUBE INTACT, W/ FEEDING OF OSMOLITE AT 40ML/HR. NO RESIDUALS. REFUSED MORNING LABS PER PICKER AND SORTER LOAD AND UNLOAD RN. SAFETY PRECAUTIONS IN PLACE. WILL CONTINUE TO MONITOR.
[2021-01-09 08:00] VITALS: BP 110/67
[2021-01-09] MEDS: APIXABAN 5 MG TABLET GT SCH ×2 (09:21→16:31)
[2021-01-09] MEDS: FERROUS SULFATE UDC 300 MG/5 ML UDC GT SCH (09:22)
[2021-01-09] MEDS: POLYETHYLENE GLYCOL 3350 17 GM POWD.PACK GT SCH (09:22)
[2021-01-09] MEDS: DOCUSATE SODIUM LIQ 100 MG/10 ML UDC GT SCH ×2 (09:22→16:29)
[2021-01-09] MEDS: methylPREDNISolone SOD SUCC 40 MG/ML VIAL IV SCH ×3 (09:22→16:29)
[2021-01-09] MEDS: CYANOCOBALAMIN 500 MCG TABLET GT SCH (09:23)
[2021-01-09] MEDS: LOSARTAN POTASSIUM 50 MG TABLET GT SCH ×2 (09:23→23:22)
[2021-01-09] MEDS: CHOLECALCIFEROL 1,000 UNIT TABLET (VIT D3) GT SCH (09:23)
[2021-01-09] MEDS: PANTOPRAZOLE 40 MG/PACK PACK GT SCH (09:23)
[2021-01-09] MEDS: GABAPENTIN 100 MG CAPSULE GT SCH ×3 (09:23→16:30)
[2021-01-09] MEDS: ASPIRIN 81 MG TAB.CHEW GT SCH (09:23)
[2021-01-09] MEDS: cetrizine 10 MG TABLET GT SCH (09:23)
[2021-01-09] MEDS: CLOTRIMAZOLE 1% 15 GM TUBE TP SCH ×2 (09:24→16:29)
[2021-01-09] MEDS: HYDROGEL DRESSING 90 GM TUBE TP SCH (09:25)
[2021-01-09] MEDS: HYDROGEL DRESSING 90 GM TUBE TP PRN (09:25)
[2021-01-09] MEDS: Z GUARD REMEDY 2 OZ OINT TP SCH (09:28)
[2021-01-09] MEDS: MUPIROCIN OINT 2% 22 GM TUBE TP SCH ×2 (09:31→23:23)
[2021-01-09] MEDS: VANCOMYCIN 1 GM in IV D5W 250 ML IV SCH (09:31)
--- NOTE | 2021-01-09 11:27 | NUR ---
RN NOTES GT SITE CLEANSED AND DRESSING CHANGED. GTUBE FLUSHED FOR PATENCY.
[2021-01-09 12:00] VITALS: BP 127/74
--- NOTE | 2021-01-09 12:39 | NUR ---
RN NOTES NO RESIDUAL NOTED FROM FEEDING. SPOKE W/ REPAIRER ENGINE PRODUCTION AND CONFIRMED ABOUT GOAL RATE FOR PATIENT OF 55ML/HR; PATIENT HAS NO NAUSEA/VOMITING/DIARRHEA AT THIS TIME AND WILL INCREASE FEEDING RATE TOLERATED. REPAIRER ENGINE PRODUCTION OK W/ PLAN AT THIS TIME.
[2021-01-09] MEDS: OSMOLITE 1.2 CAL 1,000 ML LIQUID GT PRN (12:48)
--- NOTE | 2021-01-09 14:36 | NUR ---
RN NOTES PATIENT WAS SEEN BY VICKY FLANAGAN ONCO; PATIENT TO DECIDE IF HE WOULD LIKE TO DO BIOPSY NEXT WEEK.
[2021-01-09 16:00] VITALS: BP 110/61
[2021-01-09 16:31] LABS: CALCIUM, SERUM 8.9 mg/dL (8.5-10.1); CREATININE 0.7 mg/dL (0.6-1.3); POTASSIUM 4.5 mmol/L (3.5-5.1)
--- NOTE | 2021-01-09 18:42 | NUR ---
RN NOTES PATIENT IN BED RESTING, AWAKE AND VERBALLY RESPONSIVE. ABLE TO TITRATE O2 TO 2L/MIN VIA NC, NO RESPIRATORY DISTRESS; O2 SAT >95%. GT FEEDING CONTINUOUS AND INCREASED RATE TO 55ML/HR; NO RESIDUAL NOTED AT THIS TIME. NO COMPLAINT OF NAUSEA/VOMITING/DIARRHEA. IV LINE INTACT. SAFETY MEASURES MAINTAINED. WILL ENDORSE TO PROFESSOR OF LAW RN FOR MAGDIEL.
--- NOTE | 2021-01-09 19:30 | NUR ---
RN OPENING NOTE BEDSIDE REPORT RECIEVED BUBBA HAY RN. PATIENT IN BED, AWAKE AND VERBALLY RESPONSIVE. CURRENTLY REFUSING THE DICONTINUATION OF HIS FC. PT STATES, "I WANT TO TALK TO MY DAUGHTER ABOUT IT BEFORE WE DO THAT." INFORMED THAT IT IS RECOMMENDED TO REMOVE TO REDUCE RISK OF URINE INFECTION. PT STILL REFUSING AT THIS TIME. O2 SET TO 2L/MIN VIA NC, NO RESPIRATORY DISTRESS DENIES SOB. GT FEEDING CONTINUOUS AND INCREASED RATE TO 55ML/HR; RESIDUAL IS LESS THEN 20 AT THIS TIME AT THIS TIME. NO COMPLAINT OF NAUSEA/VOMITING/DIARRHEA. IV LINE INTACT. SAFETY MEASURES IN PLACE WILL CONT TO MONITOR.
--- NOTE | 2021-01-09 20:00 | NUR ---
per slab grinder patient refusing vancomycin trough. bonifacio with patient explained the test patient agrees to have vancomycin drawn. call made to slab grinder state they will return to take lab after finishing other patient.
[2021-01-09 21:03] VITALS: BP 133/65
--- NOTE | 2021-01-09 23:00 | NUR ---
PATIENT AGREEABLE TO FC REMOVAL. FC REMOVED PATIENT TOLERATED PROCIEDURE WELL. PT HAD PADS PLACD FOR INCONTINENCE. WILL CONT TO MONITOR AND GIVE PERINEAL CARE PRN.
[2021-01-09] MEDS: DULOXETINE HCL 30 MG CAPSULE.DR GT SCH (23:22)
[2021-01-10] MEDS: VANCOMYCIN 1 GM in IV D5W 250 ML IV SCH ×2 (00:13→12:38)
[2021-01-10 00:22] VITALS: BP 151/98
[2021-01-10] MEDS: IPRATROPIUM NEB FS 0.5 MG/2.5 ML AMPUL.NEB NEB SCH ×4 (01:30→19:30)
[2021-01-10] MEDS: ALBUTEROL FS 2.5 MG/0.5 ML VIAL.NEB NEB SCH ×4 (01:30→19:30)
--- NOTE | 2021-01-10 04:14 | NUR ---
PHARMACIST CALLED INFORMED THAT VANCO WAS GIVEN 3 HOURS LATE DUE TO DELAY IN RECIEVING TROUGH LEVEL. STATES HE WILL RETIME THE NEXT DOSE OF VANCO TO NOON.
[2021-01-10 04:36] VITALS: BP 122/61
[2021-01-10] MEDS: PIPERACILLIN /TAZOBACTAM 3.375 G in IV D5W 50 ML IV SCH ×3 (05:46→17:20)
--- NOTE | 2021-01-10 07:15 | NUR ---
RN OPENING NOTE Received patient asleep in bed calm and relaxed no signs of distress on NC 2L tolerating well. Tele reading SR has GTF running Osmolite 55ml/hr no residual. S/P debridement of r. ankle wound no signs if bleeding. R hand #24 flushes well. Safety measures maintained. Call light within reach. Will cont to monitor.
[2021-01-10 08:00] VITALS: BP 140/74
[2021-01-10] MEDS: DOCUSATE SODIUM LIQ 100 MG/10 ML UDC GT SCH ×2 (08:56→16:20)
[2021-01-10] MEDS: FERROUS SULFATE UDC 300 MG/5 ML UDC GT SCH (08:56)
[2021-01-10] MEDS: cetrizine 10 MG TABLET GT SCH (08:56)
[2021-01-10] MEDS: CHOLECALCIFEROL 1,000 UNIT TABLET (VIT D3) GT SCH (08:56)
[2021-01-10] MEDS: LOSARTAN POTASSIUM 50 MG TABLET GT SCH ×2 (08:56→20:48)
[2021-01-10] MEDS: GABAPENTIN 100 MG CAPSULE GT SCH ×3 (08:57→16:20)
[2021-01-10] MEDS: POLYETHYLENE GLYCOL 3350 17 GM POWD.PACK GT SCH (08:57)
[2021-01-10] MEDS: CYANOCOBALAMIN 500 MCG TABLET GT SCH (08:57)
[2021-01-10] MEDS: PANTOPRAZOLE 40 MG/PACK PACK GT SCH (08:57)
[2021-01-10] MEDS: ASPIRIN 81 MG TAB.CHEW GT SCH (08:57)
[2021-01-10] MEDS: APIXABAN 5 MG TABLET GT SCH ×2 (08:58→16:26)
[2021-01-10] MEDS ORDERED: methylPREDNISolone SOD SUCC 40 MG/ML VIAL IV SCH (09:00)
[2021-01-10] MEDS: MUPIROCIN OINT 2% 22 GM TUBE TP SCH ×2 (09:14→21:28)
[2021-01-10] MEDS: Z GUARD REMEDY 2 OZ OINT TP SCH (09:15)
[2021-01-10] MEDS: HYDROGEL DRESSING 90 GM TUBE TP SCH (09:15)
[2021-01-10] MEDS: CLOTRIMAZOLE 1% 15 GM TUBE TP SCH ×2 (09:15→16:36)
[2021-01-10 12:20] LABS: BASOPHILS # (AUTO) 0.1 K/uL (0.0-0.2); BASOPHILS % (AUTO) 0.9 % (0.0-2.0); HEMATOCRIT 37 % (39-51); HEMOGLOBIN 11.7 g/dL (13.5-17.5); LYMPHOCYTES # (AUTO) 0.3 K/uL (0.8-4.8); MEAN CORPUSCULAR HGB CONC 32 g/dl (31.0-36.0); MEAN CORPUSCULAR VOLUME 92 fL (80-96); MONOCYTES # (AUTO) 0.7 K/uL (0.1-1.30); MONOCYTES % (AUTO) 7.8 % (2.0-12.0); NEUTROPHILS # (AUTO) 8.5 K/uL (1.8-8.9); NEUTROPHILS % (AUTO) 88.3 % (43.0-81.0); PLATELET COUNT (AUTO) 520 K/uL (150-450); RED BLOOD CELL COUNT(AUTO) 4.01 MIL/uL (4.5-6.0); WHITE BLOOD COUNT (AUTO) 9.6 K/uL (4.3-11.0)
[2021-01-10] MEDS: OSMOLITE 1.2 CAL 1,000 ML LIQUID GT PRN (12:38)
[2021-01-10 12:47] LABS: CALCIUM, SERUM 8.4 mg/dL (8.5-10.1); CREATININE 0.6 mg/dL (0.6-1.3); POTASSIUM 4.1 mmol/L (3.5-5.1)
[2021-01-10 16:00] VITALS: BP 130/62
[2021-01-10] MEDS: methylPREDNISolone SOD SUCC 40 MG/ML VIAL IV SCH (16:19)
[2021-01-10] MEDS: HYDROMORPHONE 1 MG/1 ML DISP.SYRIN IV PRN ×2 (16:40→22:45)
--- NOTE | 2021-01-10 18:39 | NUR ---
RN CLOSING NOTE Patient in bed awake on NC 2L tolerating well. No co pain or discomfort at this time. GTF running Osmolite 55ml/hr tolerating well. Vital signs within normal limits. All due meds given. No adverse effects on ATB therapy. Safety measures maintained. Will endorse to solder deposit operator nurse for luke.
--- NOTE | 2021-01-10 19:39 | NUR ---
MS RN NOTES Patient in bed awake on NC 2L tolerating well. No co pain or discomfort at this time. GTF running Osmolite 55ml/hr tolerating well. Vital signs within normal limits. Safety measures maintained. Will continue to monitor.
[2021-01-10 20:00] VITALS: BP 93/54
[2021-01-10] MEDS: DULOXETINE HCL 30 MG CAPSULE.DR GT SCH (21:28)
[2021-01-10 22:35] VITALS: BP 105/61
--- NOTE | 2021-01-10 22:45 | NUR ---
MS RN NOTES PT REPORTED PAIN 8/10 ON ANUMERIC PAIN SCALE DILAUDID GIVEN AND TOLERATED WELL. WILL CONTINUE TO MONITOR.
[2021-01-11] MEDS: PIPERACILLIN /TAZOBACTAM 3.375 G in IV D5W 50 ML IV SCH ×3 (00:18→12:14)
[2021-01-11] MEDS: VANCOMYCIN 1 GM in IV D5W 250 ML IV SCH ×2 (00:20→12:14)
[2021-01-11] MEDS: IPRATROPIUM NEB FS 0.5 MG/2.5 ML AMPUL.NEB NEB SCH ×3 (01:17→13:30)
[2021-01-11] MEDS: ALBUTEROL FS 2.5 MG/0.5 ML VIAL.NEB NEB SCH ×3 (01:17→13:30)
[2021-01-11] MEDS: OSMOLITE 1.2 CAL 1,000 ML LIQUID GT PRN (05:57)
[2021-01-11] MEDS: HYDROMORPHONE 1 MG/1 ML DISP.SYRIN IV PRN ×3 (06:14→14:47)
--- NOTE | 2021-01-11 06:50 | NUR ---
MS RN NOTES PATIENT RESTING IN BED, AWAKE AND VERBALLY RESPONSIVE. ALERT AND ORIENTED X 3, ABLE TO MAKE NEEDS KNOWN. BREATHING EVEN AND UNLABORED ON 4L NC, NO RESPIRATORY DISTRESS NOTED. IV LINE INTACT. G-TUBE INTACT, W/ FEEDING OF OSMOLITE AT 55ML/HR. ALL NURSING NEEDS MET ALL DUE MEDS GIVEN AND TOLERATED WELL. SAFETY PRECAUTIONS IN PLACE. WILL ENDORSE CARE TO DAY SHIFT NURSE.
--- NOTE | 2021-01-11 07:46 | NUR ---
MS RN OPENING NOTES RECEIVED PATIENT AWAKE IN BED, ALERT AND ORIENTED X 3. NO SIGNS OR SYMPTOMS OF DISTRESS NOTED. IV ACCESS RWRIST#24 PATENT AND INTACT. NO SOB. SAFETY MEASURES MAINTAINED WITH BED AT LOWEST POSITION AND SIDE RAILS UP X 2. CALL LIGHT AND BEDSIDE TABLE WITHIN REACH. WILL CONTINUE TO MONITOR PATIENT THROUGHOUT SHIFT.
[2021-01-11 09:00] VITALS: BP 107/56
[2021-01-11] MEDS: LOSARTAN POTASSIUM 50 MG TABLET GT SCH (09:00)
[2021-01-11] MEDS: GABAPENTIN 100 MG CAPSULE GT SCH ×2 (09:05→12:53)
[2021-01-11] MEDS: CYANOCOBALAMIN 500 MCG TABLET GT SCH (09:06)
[2021-01-11] MEDS: POLYETHYLENE GLYCOL 3350 17 GM POWD.PACK GT SCH (09:06)
[2021-01-11] MEDS: CHOLECALCIFEROL 1,000 UNIT TABLET (VIT D3) GT SCH (09:06)
[2021-01-11] MEDS: DOCUSATE SODIUM LIQ 100 MG/10 ML UDC GT SCH (09:06)
[2021-01-11] MEDS: PANTOPRAZOLE 40 MG/PACK PACK GT SCH (09:06)
[2021-01-11] MEDS: cetrizine 10 MG TABLET GT SCH (09:06)
[2021-01-11] MEDS: methylPREDNISolone SOD SUCC 40 MG/ML VIAL IV SCH (09:06)
[2021-01-11] MEDS: ASPIRIN 81 MG TAB.CHEW GT SCH (09:06)
[2021-01-11] MEDS: FERROUS SULFATE UDC 300 MG/5 ML UDC GT SCH (09:06)
[2021-01-11] MEDS: APIXABAN 5 MG TABLET GT SCH (09:08)
[2021-01-11] MEDS: CLOTRIMAZOLE 1% 15 GM TUBE TP SCH (09:54)
[2021-01-11] MEDS: HYDROGEL DRESSING 90 GM TUBE TP PRN (09:54)
[2021-01-11] MEDS: MUPIROCIN OINT 2% 22 GM TUBE TP SCH (09:55)
[2021-01-11] MEDS: HYDROGEL DRESSING 90 GM TUBE TP SCH (09:56)
[2021-01-11] MEDS: Z GUARD REMEDY 2 OZ OINT TP SCH (09:57)
--- NOTE | 2021-01-11 10:38 | NUR ---
IV INSERTED IN RAC G#20, GOOD BLOOD RETURN NOTED, INTACT PATENT AND FLUSHING WELL. PT TOLERATED WELL. WILL CONTINUE WITH PLAN OF CARE
[2021-01-11 13:00] LABS: CALCIUM, SERUM 8.6 mg/dL (8.5-10.1); CREATININE 0.7 mg/dL (0.6-1.3); POTASSIUM 4.9 mmol/L (3.5-5.1)
--- NOTE | 2021-01-11 15:10 | NUR ---
MS RN NOTES PATIENT REFUSED ALL PHOTOS UPON DISCHARGE.
--- NOTE | 2021-01-11 15:40 | NUR ---
MS MARKETING PROFESSOR NOTES RECEIVED DISCHARGE IN 314-1. PATIENT WAS DISCHARGED WITH STABLE VITAL SIGNS. NO SIGNS OR SYMPTOMS OF DISTRESS NOTED. NO SOB. DISCHARGE SUMMARY REVIEWED AND SIGNED BY PATIENT. REPORT GIVEN TO NURSE RAJAN AT [facility]. VERBALIZED UNDERSTANDING AND ALL QUESTIONS ANSWERED. IV ACCESS KEPT IN PLACE AND INTACT. BELONGINGS ALL ACCOUNTED FOR AND RETURNED. PATIENT WAS PICKED UP VIA AMBULANCE. OBSERVED PATIENT EXIT UNIT@ 1530.
== END 2021-01-11 15:45 | DRG 853 ==
LOC: ER 10:00 → ICU 13:47 → TELE 01-07 13:15 → MED 01-10 10:16
PROVIDERS: ADMIT Internal Medicine; ATTEND Internal Medicine
PROC: 0JBQ0ZZ Excision of Right Foot Subcutaneous Tissue and Fascia, Open Approach (ICD-10-PCS; principal; 2021-01-07)
DX: A41.9 Sepsis, unspecified organism (principal); J69.0 Pneumonitis due to inhalation of food and vomit; J96.01 Acute respiratory failure with hypoxia; E43 Unspecified severe protein-calorie malnutrition; L89.513 Pressure ulcer of right ankle, stage 3; I21.A1 Myocardial infarction type 2; I50.43 Acute on chronic combined systolic (congestive) and diastolic (congestive) heart failure; E87.2 Acidosis; J44.0 Chronic obstructive pulmonary disease with (acute) lower respiratory infection; J44.1 Chronic obstructive pulmonary disease with (acute) exacerbation; I69.354 Hemiplegia and hemiparesis following cerebral infarction affecting left non-dominant side; C78.00 Secondary malignant neoplasm of unspecified lung; I48.20 Chronic atrial fibrillation, unspecified; C13.9 Malignant neoplasm of hypopharynx, unspecified; D47.2 Monoclonal gammopathy; F19.10 Other psychoactive substance abuse, uncomplicated; D50.9 Iron deficiency anemia, unspecified; F32.9 Major depressive disorder, single episode, unspecified; D63.8 Anemia in other chronic diseases classified elsewhere; Z20.822 Contact with and (suspected) exposure to COVID-19; M20.42 Other hammer toe(s) (acquired), left foot; M20.41 Other hammer toe(s) (acquired), right foot; K21.9 Gastro-esophageal reflux disease without esophagitis; F41.9 Anxiety disorder, unspecified; Z79.899 Other long term (current) drug therapy; Z79.01 Long term (current) use of anticoagulants; D47.3 Essential (hemorrhagic) thrombocythemia; G62.9 Polyneuropathy, unspecified; G89.29 Other chronic pain; R13.10 Dysphagia, unspecified; Z93.1 Gastrostomy status; Z92.3 Personal history of irradiation; Z92.21 Personal history of antineoplastic chemotherapy; Z91.19 Patient's noncompliance with other medical treatment and regimen; F29 Unspecified psychosis not due to a substance or known physiological condition; Y95 Nosocomial condition; Z87.891 Personal history of nicotine dependence; Z85.89 Personal history of malignant neoplasm of other organs and systems; I11.0 Hypertensive heart disease with heart failure; K80.20 Calculus of gallbladder without cholecystitis without obstruction; Z74.01 Bed confinement status
CPT/HCPCS: 36415; 71045-TC; 80048-TC; 80053-TC; 80061-TC; 80076-TC; 80202-TC; 82232; 82728-TC; 82784; 83540-TC; 83605-TC; 83880; 84155; 84165; 84443-TC; 84484-TC; 85025-TC; 85396; 85730-TC; 86334; 87040-TC; 87081-TC; 93307-TC; 94799-TC; A6248; A6403; C9113; C9803; G0378; J1100; J1170; J1650; J1940; J2543; J2920; J3370; J7050; J7060; Q9967; U0003

== ENCOUNTER 2021-01-26 05:14 | Inpatient (IN) | payer MEDICARE, OTHER ==
[~2021-01-26] VITALS: Ht 185.4 cm; Wt 60.3 kg
[2021-01-26] VITALS (36 sets, daily range): BP systolic 87–135; BP diastolic 39–90
[~2021-01-26 05:14] MED LIST: ACET650S26 GT; AMIN30LI27 GT; APIX5TAB GT; CETI-108 GT; CHOL100062 PO; CLOT12CR TP; CYAN500T64 GT; DOCU50LI GT; DULO30CA2 GT; FERR300L GT; GABA-532 GT; HYDR28.32 TP; HYDR4TAB57 GT; LACT-209 GT; LANS30CA56 GT; LIDO30JE4 MM; NORM210S MM; ONDA4TAB5 GT; POLY17PO4 GT; POVI100M TP
--- NOTE | 2021-01-26 05:14 | NUR ---
PT AAOX4. BIBRA FROM [facility] C/O SOB, LOW O2 SAT IN THE 70'S PER STAFF. PT PLACED IN BED 5 ON CARD PAINTER AND PULSE OX. PLACED ON 15L NR, SAT 99%. IV LINE ESTABLISHED LAC 18G, BLOOD WORK COLLECTED, SENT TO LAB. AWAITING ER MD FOR EVAL AND ORDERS.
[2021-01-26] MEDS ORDERED: PIPERACILLIN /TAZOBACTAM 3.375 G VIAL IV ONE (05:27)
[2021-01-26] MEDS ORDERED: VANCOMYCIN 1 GM VIAL ONE (05:27)
[2021-01-26] MEDS ORDERED: VANCOMYCIN 1 GM in IV D5W 250 ML IV ONE (05:30)
[2021-01-26] MEDS ORDERED: PIPERACILLIN /TAZOBACTAM 3.375 G in IV D5W 50 ML IV ONE (05:30)
[2021-01-26 05:39] LABS: BASOPHILS % (AUTO) 0.5 % (0.0-2.0); EOSINOPHILS % (AUTO) 0.6 % (0.0-6.0); HEMATOCRIT 42 % (39-51); HEMOGLOBIN 13.2 g/dL (13.5-17.5); LYMPHOCYTES # (AUTO) 0.4 K/uL (0.8-4.8); LYMPHOCYTES % (AUTO) 4.7 % (20.0-44.0); MEAN CORPUSCULAR HGB CONC 32 g/dl (31.0-36.0); MEAN CORPUSCULAR VOLUME 93 fL (80-96); MONOCYTES # (AUTO) 0.2 K/uL (0.1-1.30); MONOCYTES % (AUTO) 2.5 % (2.0-12.0); NEUTROPHILS # (AUTO) 7.6 K/uL (1.8-8.9); NEUTROPHILS % (AUTO) 91.7 % (43.0-81.0); PLATELET COUNT (AUTO) 304 K/uL (150-450); RED BLOOD CELL COUNT(AUTO) 4.49 MIL/uL (4.5-6.0); WHITE BLOOD COUNT (AUTO) 8.3 K/uL (4.3-11.0)
[2021-01-26 05:51] LABS: CALCIUM, SERUM 9.4 mg/dL (8.5-10.1); CARBON DIOXIDE 29 mmol/L (21-32); CHLORIDE 100 mmol/L (98-107); CREATININE 0.8 mg/dL (0.6-1.3); GLUCOSE 127 mg/dL (74-106); POTASSIUM 4.5 mmol/L (3.5-5.1); SODIUM SERUM 139 mmol/L (136-145); UREA NITROGEN, BLOOD 15 mg/dL (7-18)
[2021-01-26] MEDS ORDERED: IOHEXOL-350 100 ML VIAL IV ONE (05:51)
[2021-01-26] MEDS ORDERED: CT SWABBABLE VALVE TRANS SET 1 EA INFUS.SET MC ONE (05:51)
[2021-01-26] MEDS ORDERED: IV NS 0.9% 250 ML IV ONE (05:51)
[2021-01-26 05:57] LABS: ALANINE AMINOTRANSFERASE 26 U/L (12-78); ALBUMIN 2.8 g/dL (3.4-5.0); ALKALINE PHOSPHATASE 112 U/L (46-116); ASPARTATE AMINOTRANSFERASE 20 U/L (15-37); BILIRUBIN,DIRECT 0.1 mg/dL (0.0-0.2); BILIRUBIN,TOTAL 0.3 mg/dL (0.2-1.0); TOTAL PROTEIN, SERUM 8.1 g/dL (6.4-8.2)
--- NOTE | 2021-01-26 05:59 | NUR ---
UNABLE TO PROVIDE URINE AT THIS TIME. REFUSED PÉREZ.
--- NOTE | 2021-01-26 06:01 | NUR ---
LACTIC ACID 5.7
--- NOTE | 2021-01-26 06:07 | NUR ---
FLUIDS INITIATED, WILL CONTINUE TO MONITOR HR AND BP.
--- NOTE | 2021-01-26 06:08 | NUR ---
SPOKE TO LAB REGARDING COVID SWABS.
--- NOTE | 2021-01-26 06:09 | NUR ---
RADIOLOGY AT BEDSIDE FOR CTA.
--- NOTE | 2021-01-26 06:11 | NUR ---
RADIOLOGY STATED THEY WILL TAKE PT TO CTA IN 15 MINS.
[2021-01-26] MEDS ORDERED: ACETAMINOPHEN 650 MG/20.3 ML UDC ONE (06:18)
[2021-01-26] MEDS ORDERED: IV NS 0.9% 1,000 ML IV ONE (06:30)
[2021-01-26] MEDS ORDERED: ACETAMINOPHEN 650 MG/20.3 ML UDC PO ONE (06:30)
--- NOTE | 2021-01-26 06:49 | NUR ---
BROUGHT PT TO CTA AND BACK.
--- NOTE | 2021-01-26 07:30 | NUR ---
PATIENT ASLEEP, BUT EASILY AROUSABLE. A/OX3, O2 TITRATED DOWN TO 5LPM VIA NC WITH SPO2 OF 100%. PATIENT'S BREATHING EVEN AND UNLABORED. NO SOB NOTED.
--- NOTE | 2021-01-26 07:45 | NUR ---
RECEIVED ORDER FROM DR. FERNANDO DUE TO PATIENT'S LOW BP, TO START IV NS 90ML/HR, LEVOPHED TO KEEP SBP GREATER THAN 85, AND ALBUMIN 5% IN 250CC X1. ORDERS NOTED AND CARRIED OUT.
[2021-01-26] MEDS ORDERED: MULT-447 GT (07:49)
[2021-01-26] MEDS ORDERED: PANT40SU2 GT (07:49)
[2021-01-26] MEDS ORDERED: ASPI-1169 GT (07:49)
[2021-01-26] MEDS ORDERED: ZINC220C6 PO (07:49)
[2021-01-26] MEDS ORDERED: IPRA0.2S9 IH (07:49)
[2021-01-26] MEDS ORDERED: LOSA50TA39 GT (07:49)
[2021-01-26] MEDS ORDERED: PETR113O TP (07:49)
[2021-01-26] MEDS ORDERED: COLL30OI TP (07:49)
[2021-01-26] MEDS ORDERED: ACET-2605 GT (07:49)
[2021-01-26] MEDS ORDERED: ALBU2.5V38 IH ×2 (07:49)
[2021-01-26] MEDS ORDERED: ASCO-352 GT (07:49)
[2021-01-26] MEDS ORDERED: NOREPINEPHRINE 8 MG in IV NS 0.9% 242 ML IV PRN ×2 (08:00→15:30)
[2021-01-26] MEDS ORDERED: ALBUMIN 5% 12.5 GM in PREMIX 1 EA IV ONE (08:00)
[2021-01-26] MEDS: IV NS 0.9% 1,000 ML IV PRN (08:17)
--- NOTE | 2021-01-26 08:41 | NUR ---
PATIENT GAVE CONSENT FOR A CENTRAL LINE. PER PHARMACY, PATIENT DOES NOT MEET THE CRITERIA TO GIVE ALBUMIN. INFORMED DR. FERNANDO.
--- NOTE | 2021-01-26 08:45 | NUR ---
ICU BED 262
[2021-01-26] MEDS ORDERED: IV NS 0.9% 1,000 ML BAG IV ONE (09:00)
--- NOTE | 2021-01-26 09:12 | NUR ---
REPORT GIVEN TO MARLENY BRIAN, BED NOT READY AT THIS TIME, WILL CALL WHEN PATIENT CAN BE TRANSFERRED TO THE ROOM.
--- NOTE | 2021-01-26 10:00 | NUR ---
DR. FERNANDO AT BEDSIDE FOR EVAL.
--- NOTE | 2021-01-26 10:25 | NUR ---
RN NOT READY TO REPEAT THE PATIENT.
[2021-01-26] MEDS ORDERED: IPRATROPIUM NEB FS 0.5 MG/2.5 ML AMPUL.NEB NEB SCH (10:30)
[2021-01-26] MEDS ORDERED: JEVITY 1.2 CAL 1,000 ML BOTTLE GT PRN ×2 (10:30→13:30)
[2021-01-26] MEDS ORDERED: ACETAMINOPHEN 650 MG/20.3 ML UDC GT PRN (10:30)
[2021-01-26] MEDS ORDERED: ALBUTEROL FS 2.5 MG/3 ML VIAL.NEB IH PRN (10:30)
--- NOTE | 2021-01-26 11:14 | NUR ---
PATIENT A/OX3, BREATHING EVEN AND UNLABORED, NO SOB NOTED, VITALS STABLE. PATIENT TRANSFERRED TO ROOM 262 VIA ACLS PROTOCOL. NO DISTRESS NOTED. ENDORSED TO MARLENY BRIAN.
--- NOTE | 2021-01-26 11:30 | NUR ---
RN Notes Pt admitted from ER a/o x3, male on Dx of SOB, COPD with hypoxic respiratory distress. Tele monitor on, bedside monitor shows SR. patient has no acute respiratory distress, on o2-5LNC. pending COVID PCR results. skin assessment done, picture take, ordered wound consult. patient npo, GT intact, have weakness on left upper and lower extremitas. incontinent, applied diaper. call light within to reach. seen primer Dr Rosado, Dr Simon, and mill platform supervisor Dr Woodson. will monitoring.
[2021-01-26] MEDS ORDERED: PIPERACILLIN /TAZOBACTAM 3.375 G in IV D5W 50 ML IV SCH (12:00)
[2021-01-26 12:31] LABS: ABG BASE EXCESS 1.2 mmol/L; ABG OXYGEN SATURATION 95.6 % (92.0-98.5); ABG PCO2 42.8 mmHg (35.0-45.0); ABG PH 7.404 (7.350-7.450); ABG PO2 78.2 mmHg (75.0-100.0); AaDO2 157.8 mmHg; COHb 0.9 % (0.5-1.5); MetHb 0.3 % (0.0-1.5); O2Hb 94.5 % (94.0-97.0); SITE, ABG Right Radial; VENT MODE, BG NASAL CANNULA
[2021-01-26] MEDS: IPRATROPIUM NEB FS 0.5 MG/2.5 ML AMPUL.NEB IH SCH ×2 (12:33→19:30)
[2021-01-26] MEDS: ALBUTEROL FS 2.5 MG/3 ML VIAL.NEB IH SCH ×2 (12:33→19:30)
[2021-01-26] MEDS: methylPREDNISolone SOD SUCC 125 MG/2ML VIAL IV SCH ×2 (12:34→20:08)
[2021-01-26] MEDS: PIPERACILLIN /TAZOBACTAM 3.375 G in IV D5W 100 ML IV SCH ×2 (12:34→20:00)
[2021-01-26] MEDS: GABAPENTIN 100 MG CAPSULE GT SCH ×2 (12:34→17:29)
--- NOTE | 2021-01-26 12:35 | NUR ---
RT Pt received awake and alert on 5L nasal cannula, ABG was done per Dr. Chintan ha. O2 titrated to 2L nasal cannula due to ABG results. HHN tx not given at this time due to pending COVID PCR results. No SOB or respiratory distress is noted. Addendum: 01/26/21 at 1236 by DANELLE SALMON RT Amended: Links added.
[2021-01-26] MEDS: DOCUSATE SODIUM LIQ 100 MG/10 ML UDC GT SCH (17:29)
[2021-01-26] MEDS: APIXABAN 5 MG TABLET GT SCH (17:30)
[2021-01-26] MEDS: VANCOMYCIN 0.75 GM in IV D5W 250 ML IV SCH (17:31)
--- NOTE | 2021-01-26 19:00 | NUR ---
rn notes due medication administered, diaper changes, running Jevity 1.2 @30ml/hr intact, feeding tolerating well. HOB elevated for aspiration precaution. infusing NS @90 ml/hr on left UA PICC line, intact. patient able to turn to the left side by self. was complaining of pain generalized 3/10 per pain scale. Stop Levophed infusion because BP 118/ 67. call light within to reach. endorsed oncoming nurse follow plan of care.
--- NOTE | 2021-01-26 19:10 | NUR ---
RN NOTE RECEIVED PATIENT IN BED RESTING ON 2L OXYGEN VIA NASAL CANNULA,O2:92% ON G-TUBE FEEDING JEVITY 1.2 30CC/HR CHECKED PLACEMENT,IN PLACE NO RESIDUAL ,LEVOPHED OFF,IV SITE IS ON LEFT UPPER ARM PICC, ON IV HYDRATION NS 0.9% 90CC/HR HEAD OF THE BED ELEVATED,SAFETY MEASURE IMPLEMENT BED IN LOW POSITION AND LOCKED,BED ALARM IS ON CONTINUE TO MONITOR.
--- NOTE | 2021-01-26 20:00 | NUR ---
RN NOTE RESTARTED LEVOPHED 0.02MCG BP 83/52 HR 67 CONTINUE TO MONITOR.
[2021-01-26] MEDS: DULOXETINE HCL 30 MG CAPSULE.DR GT SCH (21:03)
[2021-01-27] VITALS (29 sets, daily range): BP systolic 103–157; BP diastolic 33–102
--- NOTE | 2021-01-27 00:48 | NUR ---
RN NOTE HOLD LEVOPHED NOW BP 121/55 HR 76 CONTINUE TO MONITOR.
[2021-01-27] MEDS: ALBUTEROL FS 2.5 MG/3 ML VIAL.NEB IH SCH ×5 (01:30→19:30)
[2021-01-27] MEDS: IPRATROPIUM NEB FS 0.5 MG/2.5 ML AMPUL.NEB IH SCH ×5 (01:30→19:30)
--- NOTE | 2021-01-27 02:00 | NUR ---
RN NOTE PATIENT REFUSED TO BE CHANGED EXPLAINED HIM RISKS STILL STRONGLY REFUSED CONTINUE TO MONITOR.
[2021-01-27] MEDS: IV NS 0.9% 1,000 ML IV PRN (02:58)
[2021-01-27] MEDS: PIPERACILLIN /TAZOBACTAM 3.375 G in IV D5W 100 ML IV SCH ×3 (03:37→19:36)
[2021-01-27] MEDS: methylPREDNISolone SOD SUCC 125 MG/2ML VIAL IV SCH ×3 (04:03→20:03)
[2021-01-27 04:57] LABS: CALCIUM, SERUM 8.5 mg/dL (8.5-10.1); CREATININE 0.6 mg/dL (0.6-1.3); POTASSIUM 3.7 mmol/L (3.5-5.1)
[2021-01-27] MEDS: VANCOMYCIN 0.75 GM in IV D5W 250 ML IV SCH ×2 (05:01→17:52)
[2021-01-27] MEDS: HYDROMORPHONE 1 MG/1 ML DISP.SYRIN IV PRN ×4 (06:08→20:00)
--- NOTE | 2021-01-27 06:08 | NUR ---
RN NOTE PATIENT REQUESTED PAIN MEDS DILAUDID 0.5 MG IV GIVEN FOR GENERALIZED BODY PAIN CONTINUE TO MONITOR
--- NOTE | 2021-01-27 06:52 | NUR ---
RN NOTE PATIENT REMAINS ON ALERT ORIENTED X2-3 VERBALLY RESPONSIVE NO SOB NOT ACUTE DISTRESS NOTED HE IS ON 2L OXYGEN VIA NASAL CANNULA O2:93% IV SITE IS ON LEFT UPPER ARM PICC LINE INTACT PATENT ON IV HYDRATION NS 0.9% 90CC/HR ,ALL DUE MEDS GIVEN, MD ORDERED,HE REFUSED TO BE CHANGED AND CLEANED,LEVOPHED IS OFF BP IS 130/72, ENDORSE NEXT COMING SHIFT FOR CONTINUATION OF CARE.
--- NOTE | 2021-01-27 07:00 | NUR ---
PAN HELPER RECEIVED PT AWAKE. SPO2 VARIABLE AND NOT CORRELATING WITH PULSES. AWAITING BLOOD GAS. REFUSING MOST MEDS AND CARE AT THIS TIME.
[2021-01-27 07:01] LABS: HEMATOCRIT 30 % (39-51); HEMOGLOBIN 9.6 g/dL (13.5-17.5); LYMPHOCYTES # (AUTO) 0.3 K/uL (0.8-4.8); LYMPHOCYTES % (AUTO) 4.5 % (20.0-44.0); MEAN CORPUSCULAR HGB CONC 32 g/dl (31.0-36.0); MEAN CORPUSCULAR VOLUME 93 fL (80-96); MONOCYTES # (AUTO) 0.2 K/uL (0.1-1.30); MONOCYTES % (AUTO) 2.5 % (2.0-12.0); NEUTROPHILS # (AUTO) 6.9 K/uL (1.8-8.9); PLATELET COUNT (AUTO) 219 K/uL (150-450); RED BLOOD CELL COUNT(AUTO) 3.21 MIL/uL (4.5-6.0); WHITE BLOOD COUNT (AUTO) 7.4 K/uL (4.3-11.0)
--- NOTE | 2021-01-27 07:18 | NUR ---
pt. is awake and non respirtatory distress noted, received on 3 lpm o2 flow via nasal cannula with spo2 92%. Addendum: 01/27/21 at 0721 by CHAKA NOGUERA RT Amended: Links added.
[2021-01-27] MEDS: ASCORBIC ACID 500 MG TABLET GT SCH (08:37)
[2021-01-27] MEDS: APIXABAN 5 MG TABLET GT SCH ×2 (08:37→17:49)
[2021-01-27] MEDS: ZINC SULFATE 220 MG CAPSULE PO SCH (08:37)
[2021-01-27] MEDS: DOCUSATE SODIUM LIQ 100 MG/10 ML UDC GT SCH ×2 (08:38→17:48)
[2021-01-27] MEDS: ASPIRIN 81 MG TAB.CHEW GT SCH (08:38)
[2021-01-27] MEDS: PANTOPRAZOLE 40 MG/PACK PACK GT SCH (08:38)
[2021-01-27] MEDS: cetrizine 10 MG TABLET GT SCH (08:38)
[2021-01-27] MEDS: FERROUS SULFATE UDC 300 MG/5 ML UDC GT SCH (08:38)
[2021-01-27] MEDS: CHOLECALCIFEROL 1,000 UNIT TABLET (VIT D3) PO SCH (08:38)
[2021-01-27] MEDS: CYANOCOBALAMIN 500 MCG TABLET GT SCH (08:38)
[2021-01-27] MEDS: POLYETHYLENE GLYCOL 3350 17 GM POWD.PACK GT SCH (08:39)
[2021-01-27] MEDS: GABAPENTIN 100 MG CAPSULE GT SCH ×3 (08:39→17:49)
--- NOTE | 2021-01-27 08:57 | NUR ---
WOUND CARE CONSULT: REVIEWED CHART, NURSING DOCUMENTATION AND PHOTOS WHICH INDICATE MULTIPLE AREAS OF SKIN DISCOLORATION TO RT SHOULDER, BACK, EXTREMITIES, DEEP TISSUE INJURY TO SACRUM AND WOUNDS TO FEET AND ANKLES, PRESENT ON ADMISSION. RECOMMENDATIONS MADE FOR SKIN PROTECTION. DISCUSSED WITH NURSING STAFF. PER RN, PT HAS BEEN UNCOOPERATIVE. RECOMMEND DPM CONSULT. PT PREVIOUSLY SEEN BY DR SINGH. DR SINGH NOTIFIED OF READMISSION. PT IS ON [facility] LOW AIRLOSS BED. MD IN AGREEMENT WITH PLAN OF CARE.
--- NOTE | 2021-01-27 09:28 | NUR ---
[employer] PT AWAKE AND ALERT. COMFORTABLE ON 2L NC. DOES NOT WANT TO BE CLEANED AT THIS TIME. WILL LET US KNOW WHEN HE IS READY.
[2021-01-27] MEDS: Z GUARD REMEDY 2 OZ OINT TP SCH (09:30)
[2021-01-27] MEDS ORDERED: Z GUARD REMEDY 2 OZ OINT TP PRN (09:30)
[2021-01-27] MEDS: PROSOURCE / PROSTAT (PYXIS) 30 ML UDC GT SCH (10:30)
--- NOTE | 2021-01-27 11:00 | NUR ---
[employer] BW DEVELOPER REMAINS AWAKE. ASKING ONLY FOR PAIN MEDS. STILL REFUSING TO BE CLEANED.
--- NOTE | 2021-01-27 13:00 | NUR ---
HEADING MAKER PT NOW AGREED TO BE CLEANED. DIAPER REMOVED. PT CLEANED OF URINE AND STOOL. LINENS CHANGED.
[2021-01-27] MEDS: JEVITY 1.2 CAL 1,000 ML BOTTLE GT PRN (13:17)
--- NOTE | 2021-01-27 17:00 | NUR ---
PUMP STATION OPERATOR NO NEW C/O. PULSE OX STILL NOT CORRELATING WITH PULSES. SENSORS AND POSITIONS CHANGED MULTIPLE TIMES WITH SAME RESULT. PT REMAINS AWAKE AND ALERT, VERBAL. WANTS HIS PHONE CLOSE BY.
--- NOTE | 2021-01-27 19:15 | NUR ---
RECEIVED PT ON BED AWAKE AA/O X2 UNCOOPERATIVE, CAN VERBALIZED NEEDS, CRAKLES ON BREATHING HEARD OFFER ORAL, OR NASO SUCTIONING BUT REFUSED SPO2 ON 88%ON O2 2L VIA NC, TELE MONITOR READS SINUS RHYTHM 90'S HAVE NIMO PIC DRESSING DRY AND INTACT, HAVE RUC PORTACATH, BED ON LOWEST POSITION AND LOCKED SIDE RAILS UP X2 CALL LIGHT WITHIN REACH DROPLET ISOLATION MAINTAIN FOR R/O COVID WILL CONT TO MONITOR
[2021-01-27] MEDS: DULOXETINE HCL 30 MG CAPSULE.DR GT SCH (22:06)
[2021-01-28] VITALS (48 sets, daily range): BP systolic 86–177; BP diastolic 46–128
[2021-01-28] MEDS: ALBUTEROL FS 2.5 MG/3 ML VIAL.NEB IH SCH ×4 (01:30→19:30)
[2021-01-28] MEDS: IPRATROPIUM NEB FS 0.5 MG/2.5 ML AMPUL.NEB IH SCH ×4 (01:30→19:30)
[2021-01-28] MEDS: HYDROMORPHONE 1 MG/1 ML DISP.SYRIN IV PRN ×3 (02:26→23:11)
--- NOTE | 2021-01-28 03:02 | NUR ---
INFORMED DR FERNANDO THAT PT DESATURATING IN 4L WITH ORDER FOR STAT ABG AND PUT PT ON HIGH FLOW TO MAINTAIN SPO2 90% NOTED AND CARRIED OUT
[2021-01-28 03:09] LABS: ABG BASE EXCESS -9.1 mmol/L; ABG OXYGEN SATURATION 67.4 % (92.0-98.5); ABG PCO2 45.3 mmHg (35.0-45.0); ABG PH 7.222 (7.350-7.450); ABG PO2 42.1 mmHg (75.0-100.0); MetHb 0.3 % (0.0-1.5); O2Hb 66.5 % (94.0-97.0); SITE, ABG Right Radial; VENT MODE, BG NASAL CANNULA
--- NOTE | 2021-01-28 03:25 | NUR ---
SEND ABG REPORT TO DR FERNANDO, WITH ORDER TO CALL LILLIE ONCKOURTNEY AND JAEL PRICE AND ORDER LOVENOX 1MG/KG SQ Q12H NOTED AND CARRIED OUT
--- NOTE | 2021-01-28 03:27 | NUR ---
PAGE PULMO RETAIL SHIFT MANAGER DR VICK AND REFER THE PT FROM DR FERNANDO WITH ORDER TO PUT PT ON HIGH FLOW SETTING PER RT NOTED AND CARRIED OUT, INFORMED RT, THEY PUT PT ON HIGH FLOW 40L 60% WITH CURRENT SPO2 93% WILL CONT TO MONITOR THE PT
--- NOTE | 2021-01-28 03:33 | NUR ---
RT NOTE ABG DRAWN. ABG RESULTS REPORTED. PT PLACED ON HIGH FLOW NASAL CANNULA PER MD ORDERS. PT IS AWAKE, ALERT AND TOLERATING HIGH FLOW NASAL CANNULA WELL. NO SIGNS OF RESPIRATORY DISTRESS NOTED. WILL CONTINUE TO MONITOR PATIENT. Addendum: 01/28/21 at 0610 by JASMIN GARCIA RT Amended: Links added.
[2021-01-28] MEDS: PIPERACILLIN /TAZOBACTAM 3.375 G in IV D5W 100 ML IV SCH ×3 (03:53→19:33)
[2021-01-28] MEDS: methylPREDNISolone SOD SUCC 125 MG/2ML VIAL IV SCH ×3 (04:30→20:16)
[2021-01-28 04:44] LABS: HEMATOCRIT 32 % (39-51); HEMOGLOBIN 9.7 g/dL (13.5-17.5); LYMPHOCYTES # (AUTO) 0.2 K/uL (0.8-4.8); LYMPHOCYTES % (AUTO) 1.3 % (20.0-44.0); MEAN CORPUSCULAR HGB CONC 31 g/dl (31.0-36.0); MEAN CORPUSCULAR VOLUME 96 fL (80-96); MONOCYTES # (AUTO) 0.7 K/uL (0.1-1.30); MONOCYTES % (AUTO) 4.8 % (2.0-12.0); NEUTROPHILS # (AUTO) 13.2 K/uL (1.8-8.9); NEUTROPHILS % (AUTO) 93.9 % (43.0-81.0); PLATELET COUNT (AUTO) 319 K/uL (150-450); RED BLOOD CELL COUNT(AUTO) 3.31 MIL/uL (4.5-6.0); WHITE BLOOD COUNT (AUTO) 14.1 K/uL (4.3-11.0)
[2021-01-28 04:49] LABS: ABG OXYGEN SATURATION 85.1 % (92.0-98.5); ABG PCO2 42.6 mmHg (35.0-45.0); ABG PH 7.358 (7.350-7.450); ABG PO2 52.4 mmHg (75.0-100.0); AaDO2 328.5 mmHg; COHb 0.7 % (0.5-1.5); O2Hb 84.5 % (94.0-97.0); SITE, ABG Right Radial; VENT MODE, BG HIGH FLOW 60%
[2021-01-28 04:50] LABS: CALCIUM, SERUM 8.7 mg/dL (8.5-10.1); CREATININE 1.1 mg/dL (0.6-1.3); POTASSIUM 4.3 mmol/L (3.5-5.1)
[2021-01-28] MEDS: VANCOMYCIN 1 GM in IV D5W 250ml IV SCH ×2 (05:53→18:22)
--- NOTE | 2021-01-28 07:35 | NUR ---
RN NOTES RECEIVED PATIENT AWAKE, ALERT AND ORIENTED, ON HFNP 40L FIO2 75% SATURATING 92%. SR ON BEDSIDE MONITOR. G TUBE TO JEVITY AT 50ML/HR. NIMO PICC WITH N/S TKO. RIGHT CHEST PORTACATH NOTED. SAFETY CHECKS IN PLACE. WILL CONTINUE TO MONITOR.
--- NOTE | 2021-01-28 07:59 | NUR ---
RT RESP HHN TXS HELD UNTIL COVID PCR RESULTS RETURN. PATIENT IN NO DISTRESS AT THIS TIME
[2021-01-28] MEDS: PROSOURCE / PROSTAT (PYXIS) 30 ML UDC GT SCH (08:50)
[2021-01-28] MEDS: DOCUSATE SODIUM LIQ 100 MG/10 ML UDC GT SCH ×2 (08:51→16:18)
[2021-01-28] MEDS: FERROUS SULFATE UDC 300 MG/5 ML UDC GT SCH (08:51)
[2021-01-28] MEDS: CHOLECALCIFEROL 1,000 UNIT TABLET (VIT D3) PO SCH (08:51)
[2021-01-28] MEDS: GABAPENTIN 100 MG CAPSULE GT SCH ×3 (08:51→16:18)
[2021-01-28] MEDS: ASPIRIN 81 MG TAB.CHEW GT SCH (08:51)
[2021-01-28] MEDS: CYANOCOBALAMIN 500 MCG TABLET GT SCH (08:52)
[2021-01-28] MEDS: POLYETHYLENE GLYCOL 3350 17 GM POWD.PACK GT SCH (08:52)
[2021-01-28] MEDS: PANTOPRAZOLE 40 MG/PACK PACK GT SCH (08:52)
[2021-01-28] MEDS: cetrizine 10 MG TABLET GT SCH (08:52)
[2021-01-28] MEDS: Z GUARD REMEDY 2 OZ OINT TP SCH (08:53)
[2021-01-28] MEDS: THERAHONEY GEL 1.5 OZ TUBE TP SCH (08:53)
[2021-01-28] MEDS: ENOXAPARIN SODIUM 60 MG/0.6 ML DISP.SYRIN SQ SCH ×2 (08:57→20:16)
[2021-01-28] MEDS: ZINC SULFATE 220 MG CAPSULE PO SCH (09:00)
[2021-01-28] MEDS: ASCORBIC ACID 500 MG TABLET GT SCH (09:00)
[2021-01-28] MEDS: JEVITY 1.2 CAL 1,000 ML BOTTLE GT PRN (14:55)
--- NOTE | 2021-01-28 18:17 | NUR ---
RN NOTES PATIENT ASLEEP BUT EASILY ROUSABLE. REMAINS ON HFNP 40L FIO2 75% SATURATING 95%. SR ON BEDSIDE MONITOR. G TUBE TO JEVITY AT 50ML/HR. NIMO PICC WITH IV VANCOMYCIN IN PROGRESS. RIGHT CHEST PORTACATH NOTED. PERIPHERAL IV X1. DIAPER IN PLACE, REFUSED TO BE CHANGED AGAIN OF THIS WRITING. SAFETY CHECKS IN PLACE. WILL ENDORSE TO NIGHT RN FOR CONTINUITY OF CARE.
--- NOTE | 2021-01-28 19:17 | NUR ---
RECEIVED PT ON BED AWAKE AA/O X2 UNCOOPERATIVE, CAN VERBALIZED NEEDS, CRAKLES ON BREATHING HEARD OFFER ORAL, OR NASO SUCTIONING BUT REFUSED SPO2 ON 88%ON HIGH FLOW O2 40L 75%, TELE MONITOR READS SINUS RHYTHM 90'S HAVE NIMO PIC DRESSING DRY AND INTACT, HAVE RUC PORTACATH, BED ON LOWEST POSITION AND LOCKED SIDE RAILS UP X2 CALL LIGHT WITHIN REACH DROPLET ISOLATION MAINTAIN FOR R/O COVID WILL CONT TO MONITOR
--- NOTE | 2021-01-28 19:40 | NUR ---
RESP HHN TX NOT GIVEN DUE TO PENDING PCR COVID TEST RESULT. RN NICOLA NOTIFIED.
[2021-01-28] MEDS: DULOXETINE HCL 30 MG CAPSULE.DR GT SCH (21:21)
[2021-01-29] VITALS (29 sets, daily range): BP systolic 118–201; BP diastolic 61–133
[2021-01-29] MEDS: ALBUTEROL FS 2.5 MG/3 ML VIAL.NEB IH SCH ×5 (01:10→19:28)
[2021-01-29] MEDS: IPRATROPIUM NEB FS 0.5 MG/2.5 ML AMPUL.NEB IH SCH ×4 (01:10→19:27)
[2021-01-29] MEDS: HYDROMORPHONE 1 MG/1 ML DISP.SYRIN IV PRN ×3 (03:35→23:07)
[2021-01-29] MEDS: PIPERACILLIN /TAZOBACTAM 3.375 G in IV D5W 100 ML IV SCH ×3 (03:37→23:09)
[2021-01-29 04:46] LABS: HEMATOCRIT 31 % (39-51); LYMPHOCYTES # (AUTO) 0.2 K/uL (0.8-4.8); LYMPHOCYTES % (AUTO) 1.6 % (20.0-44.0); MEAN CORPUSCULAR HGB CONC 32 g/dl (31.0-36.0); MEAN CORPUSCULAR VOLUME 93 fL (80-96); MONOCYTES # (AUTO) 0.6 K/uL (0.1-1.30); MONOCYTES % (AUTO) 5.4 % (2.0-12.0); NEUTROPHILS # (AUTO) 9.9 K/uL (1.8-8.9); PLATELET COUNT (AUTO) 260 K/uL (150-450); RED BLOOD CELL COUNT(AUTO) 3.34 MIL/uL (4.5-6.0); WHITE BLOOD COUNT (AUTO) 10.7 K/uL (4.3-11.0)
[2021-01-29 05:04] LABS: CALCIUM, SERUM 8.6 mg/dL (8.5-10.1); POTASSIUM 4.5 mmol/L (3.5-5.1)
[2021-01-29] MEDS: methylPREDNISolone SOD SUCC 125 MG/2ML VIAL IV SCH (05:06)
[2021-01-29] MEDS: VANCOMYCIN 1 GM in IV D5W 250ml IV SCH ×2 (05:06→17:14)
--- NOTE | 2021-01-29 06:43 | NUR ---
PT ON BED SLEEPING STILL ON HIGHFLOW O2 40L 75% FIO2 SPO2 88-92% TELE MONITOR READS SINUS RHYTHM WITH PVC'S 88, NO SIGNIFICANT CHANGES ON CONDITION NOTED ALL NEEDS ATTENDED, BED ON LOWEST POSITION AND LOCKED SIDE RAILS UP X2 CALL LIGHT WITHIN REACH WILL ENDORSED TO AM SHIFT NURSE
--- NOTE | 2021-01-29 07:20 | NUR ---
RN OPENING NOTES RECEIVED PT IN BED, A/O X2. ON HFNP @40L FIO2:75%. O2 SAT @90%. SR ON BEDSIDE MONITOR. G TUBE IN PLACE. POSITIVE PLACEMENT CHECKED. JEVITY @50ML/HR. NIMO PICC INTACT AND PATENT. RUNNING NS TKO. RIGHT CHEST PORTACATH NOTED. SAFETY MEASURES IN PLACE. CALL LIGHT WITHIN REACH. BED LOCKED AND IN LOWEST POSITION WITH SIDE RAILS UP X2. WILL CONTINUE TO MONITOR.
--- NOTE | 2021-01-29 07:42 | NUR ---
RT HHN tx not given due to pending COVID PCR results. No SOB or respiratory distress noted. Addendum: 01/29/21 at 1310 by DANELLE SALMON RT Amended: Links added.
[2021-01-29 07:52] LABS: ABG BASE EXCESS 1.2 mmol/L; ABG OXYGEN SATURATION 84.2 % (92.0-98.5); ABG PCO2 45.8 mmHg (35.0-45.0); ABG PH 7.382 (7.350-7.450); ABG PO2 50.7 mmHg (75.0-100.0); AaDO2 435.4 mmHg; COHb 0.7 % (0.5-1.5); MetHb 0.1 % (0.0-1.5); O2Hb 83.5 % (94.0-97.0); SITE, ABG Right Radial; VENT MODE, BG HIGH FLOW NASAL CANNULA
[2021-01-29] MEDS: POLYETHYLENE GLYCOL 3350 17 GM POWD.PACK GT SCH (08:41)
[2021-01-29] MEDS: cetrizine 10 MG TABLET GT SCH (08:41)
[2021-01-29] MEDS: DOCUSATE SODIUM LIQ 100 MG/10 ML UDC GT SCH ×2 (08:41→17:13)
[2021-01-29] MEDS: PANTOPRAZOLE 40 MG/PACK PACK GT SCH (08:41)
[2021-01-29] MEDS: FERROUS SULFATE UDC 300 MG/5 ML UDC GT SCH (08:41)
[2021-01-29] MEDS: CHOLECALCIFEROL 1,000 UNIT TABLET (VIT D3) PO SCH (08:42)
[2021-01-29] MEDS: ASCORBIC ACID 500 MG TABLET GT SCH (08:42)
[2021-01-29] MEDS: CYANOCOBALAMIN 500 MCG TABLET GT SCH (08:42)
[2021-01-29] MEDS: ZINC SULFATE 220 MG CAPSULE PO SCH (08:42)
[2021-01-29] MEDS: ASPIRIN 81 MG TAB.CHEW GT SCH (08:42)
[2021-01-29] MEDS: GABAPENTIN 100 MG CAPSULE GT SCH ×3 (08:42→17:13)
[2021-01-29] MEDS: ENOXAPARIN SODIUM 60 MG/0.6 ML DISP.SYRIN SQ SCH ×2 (08:43→23:03)
[2021-01-29] MEDS: THERAHONEY GEL 1.5 OZ TUBE TP SCH (08:44)
[2021-01-29] MEDS: Z GUARD REMEDY 2 OZ OINT TP SCH (08:44)
[2021-01-29] MEDS: PROSOURCE / PROSTAT (PYXIS) 30 ML UDC GT SCH (08:44)
[2021-01-29] MEDS ORDERED: FUROSEMIDE 20 MG/2 ML VIAL IV ONE (11:30)
[2021-01-29] MEDS ORDERED: DEXTROSE 50%-WATER 50 ML DISP.SYRIN IV PRN (11:30)
[2021-01-29] MEDS: methylPREDNISolone SOD SUCC 40 MG/ML VIAL IV SCH ×2 (12:35→23:08)
[2021-01-29] MEDS: BLOOD SUGAR DIAGNOSTIC 1 EACH STRIP VI SCH ×3 (13:07→22:00)
[2021-01-29] MEDS: INSULIN REGULAR, HUMAN 100 UNIT/ML 3 ML VIAL SQ PRN ×3 (13:10→22:47)
--- NOTE | 2021-01-29 17:35 | NUR ---
RT Pt received on high flow nasal cannula, FiO2 to 100% was increased due to low pO2 on ABG results. FiO2 was titrated to 90% and maintaining adequate SpO2. Pt has rhonchi bilateral and states he is unable to clear secretions. Pt was offered nasotracheal suctioning, but pt is refusing despite being educated on benefits. No SOB or respiratory distress is noted at this time. Addendum: 01/29/21 at 1739 by DANELLE SALMON RT Amended: Links added.
--- NOTE | 2021-01-29 18:54 | NUR ---
RN CLOSING NOTES PT RESTING IN BED. REMAINS ON HFNP 40L FIO2 100%. SATURATING 96%. NO SIGNIFICANT CHANGES THROUGHOUT THE SHIFT. ALL DUE MEDS GIVEN. KEPT CLEAN AND COMFORTABLE. SAFETY MEASURES IN PLACE. WILL ENDORSE TO NIGHT RN FOR MAGDIEL.
[2021-01-29] MEDS: MUPIROCIN OINT 2% 22 GM TUBE NS SCH (23:00)
[2021-01-29] MEDS: DULOXETINE HCL 30 MG CAPSULE.DR GT SCH (23:08)
[2021-01-30] VITALS (25 sets, daily range): BP systolic 112–165; BP diastolic 65–118
--- NOTE | 2021-01-30 00:25 | NUR ---
PATIENT AWAKE ALERT HAS HIGH FLOW ON 40% SAT94 PATIENT ON MONITOR SINUS TACH SINUS RHYTHM .TEMP 98 PATIENT HAS GT NO RESIDUAL WHEN CHECK JEVITY 50 HOUR. PATIENT HAS DIAPER ON. BLOOD SUGAR WAS 163 PATIENT REFUSE INSULIN. WHEN PATIENT TAKES OFF HIGH FLOW SAT GO DOWN TO80%.
[2021-01-30] MEDS: ALBUTEROL FS 2.5 MG/3 ML VIAL.NEB IH SCH ×4 (01:02→19:36)
[2021-01-30] MEDS: IPRATROPIUM NEB FS 0.5 MG/2.5 ML AMPUL.NEB IH SCH ×4 (01:02→19:36)
[2021-01-30] MEDS: PIPERACILLIN /TAZOBACTAM 3.375 G in IV D5W 100 ML IV SCH ×3 (04:29→21:32)
[2021-01-30 04:34] LABS: BASOPHILS % (AUTO) 0.6 % (0.0-2.0); HEMATOCRIT 30 % (39-51); HEMOGLOBIN 9.5 g/dL (13.5-17.5); LYMPHOCYTES # (AUTO) 0.1 K/uL (0.8-4.8); LYMPHOCYTES % (AUTO) 1.4 % (20.0-44.0); MEAN CORPUSCULAR HGB CONC 32 g/dl (31.0-36.0); MEAN CORPUSCULAR VOLUME 93 fL (80-96); MONOCYTES # (AUTO) 0.3 K/uL (0.1-1.30); MONOCYTES % (AUTO) 4.7 % (2.0-12.0); NEUTROPHILS # (AUTO) 6.9 K/uL (1.8-8.9); NEUTROPHILS % (AUTO) 93.3 % (43.0-81.0); PLATELET COUNT (AUTO) 245 K/uL (150-450); RED BLOOD CELL COUNT(AUTO) 3.23 MIL/uL (4.5-6.0); WHITE BLOOD COUNT (AUTO) 7.4 K/uL (4.3-11.0)
[2021-01-30] MEDS: methylPREDNISolone SOD SUCC 40 MG/ML VIAL IV SCH ×3 (04:40→21:30)
[2021-01-30 04:45] LABS: CALCIUM, SERUM 8.9 mg/dL (8.5-10.1); CREATININE 0.9 mg/dL (0.6-1.3); POTASSIUM 3.9 mmol/L (3.5-5.1)
[2021-01-30] MEDS: HYDROMORPHONE 1 MG/1 ML DISP.SYRIN IV PRN ×8 (04:58→19:05)
[2021-01-30] MEDS: VANCOMYCIN 1 GM in IV D5W 250ml IV SCH ×2 (05:46→17:04)
--- NOTE | 2021-01-30 08:29 | NUR ---
WOUND CARE CONSULT: PT SEEN FOR SKIN ASSESSMENT AND NOTED TO HAVE SACRAL DEEP TISSUE INJURY WHICH IS INTACT WELL FOOT WOUNDS, PRESENT ON ADMISSION. PT IS FOLLOWED BY JIG BUILDER FOR LOWER EXTREMITIES. RASH/REDNESS NOTED TO SCROTAL AREA AND LEFT ARM NOTED TO HAVE SKIN TEARS. PT HAS VERY FRAGILE SKIN. PT IS VERY THIN AND BONY. TUBE FEEDING NOTED. RECOMMENDATIONS MADE FOR SKIN CARE AND WOUND CARE. DISCUSSED WITH NURSING STAFF. DEFER TO DP FOR LOWER EXTREMITIES. HEELS FLOATED. [facility] IN AGREEMENT WITH PLAN OF CARE. Addendum: 01/30/21 at 0832 by MICHELE PEREZ WNDNU Amended: Links added.
[2021-01-30] MEDS: BLOOD SUGAR DIAGNOSTIC 1 EACH STRIP VI SCH ×4 (08:42→21:48)
[2021-01-30] MEDS: CHOLECALCIFEROL 1,000 UNIT TABLET (VIT D3) PO SCH (08:55)
[2021-01-30] MEDS: CYANOCOBALAMIN 500 MCG TABLET GT SCH (08:56)
[2021-01-30] MEDS: cetrizine 10 MG TABLET GT SCH (08:56)
[2021-01-30] MEDS: ASPIRIN 81 MG TAB.CHEW GT SCH (08:56)
[2021-01-30] MEDS: ASCORBIC ACID 500 MG TABLET GT SCH (08:56)
[2021-01-30] MEDS: DOCUSATE SODIUM LIQ 100 MG/10 ML UDC GT SCH ×2 (08:57→17:03)
[2021-01-30] MEDS: FERROUS SULFATE UDC 300 MG/5 ML UDC GT SCH (08:57)
[2021-01-30] MEDS: PANTOPRAZOLE 40 MG/PACK PACK GT SCH (08:57)
[2021-01-30] MEDS: POLYETHYLENE GLYCOL 3350 17 GM POWD.PACK GT SCH (08:57)
[2021-01-30] MEDS: MUPIROCIN OINT 2% 22 GM TUBE NS SCH ×2 (08:57→21:31)
[2021-01-30] MEDS: GABAPENTIN 100 MG CAPSULE GT SCH ×3 (08:58→16:54)
[2021-01-30] MEDS: PROSOURCE / PROSTAT (PYXIS) 30 ML UDC GT SCH (09:00)
[2021-01-30] MEDS: ZINC SULFATE 220 MG CAPSULE PO SCH (09:03)
[2021-01-30] MEDS: CLOTRIMAZOLE 1% 15 GM TUBE TP SCH ×2 (09:03→16:54)
[2021-01-30] MEDS: Z GUARD REMEDY 2 OZ OINT TP SCH (09:04)
[2021-01-30] MEDS: THERAHONEY GEL 1.5 OZ TUBE TP SCH (09:04)
[2021-01-30] MEDS: ENOXAPARIN SODIUM 60 MG/0.6 ML DISP.SYRIN SQ SCH ×2 (09:08→21:36)
[2021-01-30] MEDS: INSULIN REGULAR, HUMAN 100 UNIT/ML 3 ML VIAL SQ PRN ×4 (09:09→21:47)
--- NOTE | 2021-01-30 09:14 | NUR ---
Dr Rosado at bedside, discussed low O2 Sat 80-83% on FiO2 90%. Pt was still with low sats during breathing tx mask (78-83%). Dr Rosado ordered FiO2 increased to 100% on the HiFlow and then do ABG. If pt's ABG values are poor, may consider intubation per Dr Rosado.
[2021-01-30 10:12] LABS: ABG OXYGEN SATURATION 95.5 % (92.0-98.5); ABG PCO2 41.9 mmHg (35.0-45.0); ABG PH 7.487 (7.350-7.450); ABG PO2 75.6 mmHg (75.0-100.0); AaDO2 595.5 mmHg; COHb 0.8 % (0.5-1.5); MetHb 0.1 % (0.0-1.5); O2Hb 94.6 % (94.0-97.0); SITE, ABG Right Brachial; VENT MODE, BG HFNC 100%+NRB
--- NOTE | 2021-01-30 15:05 | NUR ---
Pt on 100% FiO2 and Nonrebreather mask at 15 LPM, tolerating well with O2 Sat improved 94-99%. Family at bedside and requested to speak with physician regarding comfort measures and code status, as pt has been requesting pain meds every 5-10 min despite receiving the ordered dose of Dilaudid 1mg at noon (this order was modified per Dr Rosado from Q4hrs to Q3hrs already this am). Lori German was able to speak with human resources operations specialist Dr Woodson on the unit regarding pain meds and intubation, as family feels intubation would be traumatic and difficult considering pt's hx of throat CA. Daughter states that pt has been on pain meds at home for years and has a tolerance. Dr Woodson spoke with family regarding prognosis and deferred Code Status order and increasing pain meds to primary care physician. Dr Rosado called and RN explained situation and that Dr Woodson had already spoken with family. Lori German was put on the phone with Dr Rosado and the decision was agreed upon to make pt DNR/DNI at this time but will continue with current O2 and breathing tx. Daughterr Addendum: 01/30/21 at 1537 by [facility] RN2 RN (continued) Lori German spoke with Dr Rosado via phone on the unit and explained pt's pain and comfort goals. Dr Rosado ordered Dilaudid increased to 1mg Q1hr prn severe pain and if pt's pain level remains uncontrolled, RN will consult with Dr Rosado again to find solutions that work for pt. imaging account managerSNEHAL melendez.
--- NOTE | 2021-01-30 19:26 | NUR ---
VSS, pt calm and cooperative, report given to nightshift RN.
--- NOTE | 2021-01-30 19:52 | NUR ---
curriculum consultant. initial assessment. received the pt rest on the bed. awake, alert, confused. and lethargic, oxygen high flow 100% @40ml, nonrebreather 100%. sat 98%. school bus monitor showing s tach. rate is at this time 110. hob elevated. iv lt upper arm picc line gt intact. jevity @ 50 ml/h. . will continue to monitor
[2021-01-30] MEDS: JEVITY 1.2 CAL 1,000 ML BOTTLE GT PRN (21:30)
[2021-01-30] MEDS: DULOXETINE HCL 30 MG CAPSULE.DR GT SCH (21:30)
[2021-01-31] VITALS (22 sets, daily range): BP systolic 96–149; BP diastolic 58–95
[2021-01-31] MEDS: HYDROMORPHONE 1 MG/1 ML DISP.SYRIN IV PRN ×10 (00:28→22:01)
[2021-01-31] MEDS: IPRATROPIUM NEB FS 0.5 MG/2.5 ML AMPUL.NEB IH SCH ×4 (00:55→19:58)
[2021-01-31] MEDS: ALBUTEROL FS 2.5 MG/3 ML VIAL.NEB IH SCH ×4 (00:55→19:30)
[2021-01-31] MEDS ORDERED: METOPROLOL TARTRATE INJ 5 MG/5 ML AMPUL IVP PRN (03:00)
--- NOTE | 2021-01-31 03:12 | NUR ---
agriculture technician. sudden onset of svt.rate is 170s. notified md abdalla .ordered metoprolol 5mg ivp q1h and prn.
--- NOTE | 2021-01-31 03:14 | NUR ---
agricultural produce washer. night time pharmacy put order for metoprolol 5mg one dose.
[2021-01-31] MEDS ORDERED: METOPROLOL TARTRATE INJ 5 MG/5 ML AMPUL IVP ONE (03:15)
--- NOTE | 2021-01-31 03:16 | NUR ---
STAT EKG DONE
[2021-01-31] MEDS: PIPERACILLIN /TAZOBACTAM 3.375 G in IV D5W 100 ML IV SCH ×3 (04:59→21:10)
--- NOTE | 2021-01-31 05:05 | NUR ---
specialist icu. 2 episode of svt. rate is 180. metoprol 5mg ivp given per md abdalla
[2021-01-31 05:12] LABS: BASOPHILS % (AUTO) 0.2 % (0.0-2.0); HEMATOCRIT 30 % (39-51); HEMOGLOBIN 9.5 g/dL (13.5-17.5); LYMPHOCYTES # (AUTO) 0.1 K/uL (0.8-4.8); LYMPHOCYTES % (AUTO) 1.6 % (20.0-44.0); MEAN CORPUSCULAR HGB CONC 32 g/dl (31.0-36.0); MEAN CORPUSCULAR VOLUME 93 fL (80-96); MONOCYTES # (AUTO) 0.3 K/uL (0.1-1.30); MONOCYTES % (AUTO) 5.3 % (2.0-12.0); NEUTROPHILS # (AUTO) 6.1 K/uL (1.8-8.9); NEUTROPHILS % (AUTO) 92.9 % (43.0-81.0); PLATELET COUNT (AUTO) 262 K/uL (150-450); RED BLOOD CELL COUNT(AUTO) 3.19 MIL/uL (4.5-6.0); WHITE BLOOD COUNT (AUTO) 6.5 K/uL (4.3-11.0)
--- NOTE | 2021-01-31 05:30 | NUR ---
MOLD PULLER. AM CARE GIVEN.REMAINING SAME OXYGEN TOLERATED WELL. SAT 94%. ENGINEERING DOCUMENT CONTROL CLERK SHOWING S TACH. RATE IS 128. HOB ELEVATED. WILL CONTINUE TO MONITOR VITALS.
[2021-01-31 05:31] LABS: CALCIUM, SERUM 8.7 mg/dL (8.5-10.1); CREATININE 0.8 mg/dL (0.6-1.3); POTASSIUM 4.1 mmol/L (3.5-5.1)
[2021-01-31] MEDS: methylPREDNISolone SOD SUCC 40 MG/ML VIAL IV SCH ×2 (05:35→21:12)
[2021-01-31] MEDS: VANCOMYCIN 1 GM in IV D5W 250ml IV SCH (06:38)
[2021-01-31] MEDS: BLOOD SUGAR DIAGNOSTIC 1 EACH STRIP VI SCH ×4 (07:44→21:49)
[2021-01-31] MEDS: INSULIN REGULAR, HUMAN 100 UNIT/ML 3 ML VIAL SQ PRN ×4 (07:50→21:51)
[2021-01-31] MEDS: ASPIRIN 81 MG TAB.CHEW GT SCH (08:06)
[2021-01-31] MEDS: FERROUS SULFATE UDC 300 MG/5 ML UDC GT SCH (08:06)
[2021-01-31] MEDS: ZINC SULFATE 220 MG CAPSULE PO SCH (08:06)
[2021-01-31] MEDS: CYANOCOBALAMIN 500 MCG TABLET GT SCH (08:06)
[2021-01-31] MEDS: POLYETHYLENE GLYCOL 3350 17 GM POWD.PACK GT SCH (08:06)
[2021-01-31] MEDS: DOCUSATE SODIUM LIQ 100 MG/10 ML UDC GT SCH ×2 (08:06→16:23)
[2021-01-31] MEDS: ASCORBIC ACID 500 MG TABLET GT SCH (08:06)
[2021-01-31] MEDS: GABAPENTIN 100 MG CAPSULE GT SCH ×3 (08:06→16:23)
[2021-01-31] MEDS: cetrizine 10 MG TABLET GT SCH (08:07)
[2021-01-31] MEDS: CHOLECALCIFEROL 1,000 UNIT TABLET (VIT D3) PO SCH (08:07)
[2021-01-31] MEDS: MUPIROCIN OINT 2% 22 GM TUBE NS SCH ×2 (08:07→21:00)
[2021-01-31] MEDS: PANTOPRAZOLE 40 MG/PACK PACK GT SCH (08:07)
[2021-01-31] MEDS: PROSOURCE / PROSTAT (PYXIS) 30 ML UDC GT SCH (08:07)
[2021-01-31] MEDS: THERAHONEY GEL 1.5 OZ TUBE TP SCH (08:08)
[2021-01-31] MEDS: CLOTRIMAZOLE 1% 15 GM TUBE TP SCH ×2 (08:08→16:25)
[2021-01-31] MEDS: Z GUARD REMEDY 2 OZ OINT TP SCH (08:08)
[2021-01-31] MEDS: ENOXAPARIN SODIUM 60 MG/0.6 ML DISP.SYRIN SQ SCH ×2 (08:12→21:11)
[2021-01-31] MEDS ORDERED: VANCOMYCIN 0.75 GM in IV D5W 250 ML IV SCH (08:54)
[2021-01-31] MEDS ORDERED: AMIODARONE 450 MG in IV D5W 250 ML IV PRN (09:00)
[2021-01-31] MEDS ORDERED: AMIODARONE 150 MG in IV D5W 100 ML IV ONE (09:00)
[2021-01-31] MEDS ORDERED: FUROSEMIDE 20 MG/2 ML VIAL IV SCH (10:00)
[2021-01-31] MEDS: FUROSEMIDE 20 MG/2 ML VIAL IV SCH ×2 (10:36→21:12)
[2021-01-31] MEDS: AMIODARONE 450 MG in IV D5W 241 ML IV PRN ×2 (11:01→20:51)
[2021-01-31] MEDS: diphenhydrAMINE HCL 50 MG/ML VIAL IV PRN ×2 (16:23→19:20)
[2021-01-31] MEDS: VANCOMYCIN 0.75 GM in IV D5W 250 ML IV SCH (17:48)
--- NOTE | 2021-01-31 19:22 | NUR ---
Pt yells out frequently and requests pain meds sometimes more often than they are ordered. Pt bathed at 1600 and linens changed. HR 140s with amiodarone gtt infusing at 0.5 mg/min (turned down to 0.5 mg/min at 1700). Report given to nightshift RN.
[2021-01-31] MEDS: IV NS 0.9% 250 ML IV PRN (20:47)
[2021-01-31] MEDS: DULOXETINE HCL 30 MG CAPSULE.DR GT SCH (21:13)
[2021-02-01] VITALS (24 sets, daily range): BP systolic 101–152; BP diastolic 64–115
[2021-02-01] MEDS: diphenhydrAMINE HCL 50 MG/ML VIAL IV PRN ×2 (00:39→04:43)
[2021-02-01] MEDS: JEVITY 1.2 CAL 1,000 ML BOTTLE GT PRN (00:49)
--- NOTE | 2021-02-01 01:19 | NUR ---
AT 1999 PATIENT AWAKE X2 ALERT WITH HIGH FLOW ON AT 40 [id number]. AND NON RE BREATH AT 100%. LUNGS WITH CRACKLE WITH CRACKLE COUGH. PATIENT GETS VERY SHORT OF BREATH WHEN HE TAKES 02 OFF. HAS GT NO RESIDUAL AT 1999 GT PLUG USE WARM WATER TO FLUSH AND GET TUBE PATENT. JEVITY AT 50 HR. PATIENT HAS PICC LINE NS AT 10CC HR AND AMIODARONE AT 0.5MG/MIN 16.6 ML/HOUR. INFUSING DUE TO HEART RATE. BLOOD SUGAR AT 2200 132 COVERED WITH REGULAR INSULIN S.Q. PATIENT GIVEN BENADRYL 25 MG AT 0039. PATIENT SLEEPING GOOD AT 0130. PATIENT REFUSE BACTROBAN AT 2100 IN HIS NOSE. STATED HE COULD NOT BREATH. NOW HEART RATE 98 SINUS .NO SIGNS OF RESP. DISTRESS AT THIS TIME.
[2021-02-01] MEDS: IPRATROPIUM NEB FS 0.5 MG/2.5 ML AMPUL.NEB IH SCH ×4 (01:50→19:55)
[2021-02-01] MEDS: ALBUTEROL FS 2.5 MG/3 ML VIAL.NEB IH SCH ×4 (01:51→19:55)
[2021-02-01] MEDS: PIPERACILLIN /TAZOBACTAM 3.375 G in IV D5W 100 ML IV SCH ×3 (04:43→20:00)
[2021-02-01 04:46] LABS: BASOPHILS % (AUTO) 0.1 % (0.0-2.0); HEMATOCRIT 29 % (39-51); HEMOGLOBIN 9.3 g/dL (13.5-17.5); LYMPHOCYTES # (AUTO) 0.1 K/uL (0.8-4.8); LYMPHOCYTES % (AUTO) 1.6 % (20.0-44.0); MEAN CORPUSCULAR HGB CONC 32 g/dl (31.0-36.0); MEAN CORPUSCULAR VOLUME 93 fL (80-96); MONOCYTES # (AUTO) 0.3 K/uL (0.1-1.30); MONOCYTES % (AUTO) 4.6 % (2.0-12.0); NEUTROPHILS % (AUTO) 93.7 % (43.0-81.0); PLATELET COUNT (AUTO) 274 K/uL (150-450); RED BLOOD CELL COUNT(AUTO) 3.17 MIL/uL (4.5-6.0); WHITE BLOOD COUNT (AUTO) 6.4 K/uL (4.3-11.0)
[2021-02-01 04:55] LABS: CALCIUM, SERUM 8.1 mg/dL (8.5-10.1); CREATININE 0.9 mg/dL (0.6-1.3); POTASSIUM 3.5 mmol/L (3.5-5.1)
--- NOTE | 2021-02-01 06:08 | NUR ---
picc line drsg. change sinus tach on monitor. diaper change this a.m 0530 gt patient jevity at 50 hour. no residuals these hours. amiodarone still at 0.5 mg/min/ 16.6 ml/hr. c02 this a.m 42, k-3.5, na 146.
[2021-02-01] MEDS: VANCOMYCIN 0.75 GM in IV D5W 250 ML IV SCH ×2 (06:15→17:03)
[2021-02-01] MEDS: HYDROMORPHONE 1 MG/1 ML DISP.SYRIN IV PRN ×4 (06:51→21:59)
--- NOTE | 2021-02-01 07:30 | NUR ---
RN NOTES RECEIVED PATIENT A&0X2, APPEARS CONFUSED, ON HFNP 40L WITH 100% FIO2, AND NON RE BREATHER AT 100%. ST ON BEDSIDE MONITOR. G TUBE TO JEVITY AT 50ML/HR. PICC NIMO WITH AMIODARONE 16.6ML/HR AND AUDRA IN PROGRESS. SAFETY CHECKS IN PLACE. WILL CONITNUE TO MONITOR.
[2021-02-01] MEDS: BLOOD SUGAR DIAGNOSTIC 1 EACH STRIP VI SCH ×4 (08:19→22:15)
[2021-02-01] MEDS: ASPIRIN 81 MG TAB.CHEW GT SCH (08:19)
[2021-02-01] MEDS: ASCORBIC ACID 500 MG TABLET GT SCH (08:20)
[2021-02-01] MEDS: cetrizine 10 MG TABLET GT SCH (08:20)
[2021-02-01] MEDS: CHOLECALCIFEROL 1,000 UNIT TABLET (VIT D3) PO SCH (08:20)
[2021-02-01] MEDS: GABAPENTIN 100 MG CAPSULE GT SCH ×3 (08:20→16:22)
[2021-02-01] MEDS: PANTOPRAZOLE 40 MG/PACK PACK GT SCH (08:21)
[2021-02-01] MEDS: CYANOCOBALAMIN 500 MCG TABLET GT SCH (08:21)
[2021-02-01] MEDS: FUROSEMIDE 20 MG/2 ML VIAL IV SCH (08:21)
[2021-02-01] MEDS: methylPREDNISolone SOD SUCC 40 MG/ML VIAL IV SCH ×2 (08:21→21:03)
[2021-02-01] MEDS: ZINC SULFATE 220 MG CAPSULE PO SCH (08:21)
[2021-02-01] MEDS: PROSOURCE / PROSTAT (PYXIS) 30 ML UDC GT SCH (08:22)
[2021-02-01] MEDS: POLYETHYLENE GLYCOL 3350 17 GM POWD.PACK GT SCH (08:22)
[2021-02-01] MEDS: DOCUSATE SODIUM LIQ 100 MG/10 ML UDC GT SCH ×2 (08:22→16:22)
[2021-02-01] MEDS: FERROUS SULFATE UDC 300 MG/5 ML UDC GT SCH (08:22)
[2021-02-01] MEDS: MUPIROCIN OINT 2% 22 GM TUBE NS SCH ×2 (08:23→21:04)
[2021-02-01] MEDS: CLOTRIMAZOLE 1% 15 GM TUBE TP SCH ×2 (08:23→16:22)
[2021-02-01] MEDS: THERAHONEY GEL 1.5 OZ TUBE TP SCH (08:23)
[2021-02-01] MEDS: ENOXAPARIN SODIUM 60 MG/0.6 ML DISP.SYRIN SQ SCH ×2 (08:24→21:03)
[2021-02-01] MEDS: Z GUARD REMEDY 2 OZ OINT TP SCH (08:24)
[2021-02-01] MEDS: INSULIN REGULAR, HUMAN 100 UNIT/ML 3 ML VIAL SQ PRN ×4 (08:40→22:15)
[2021-02-01] MEDS: FLUCONAZOLE (100 MG) 100 MG TABLET PO SCH (11:07)
[2021-02-01] MEDS: DIGOXIN INJ 0.5 MG/2 ML AMPUL IV SCH ×3 (11:08→23:42)
[2021-02-01 11:20] LABS: ABG BASE EXCESS 12.9 mmol/L; ABG OXYGEN SATURATION 89.9 % (92.0-98.5); ABG PCO2 58.2 mmHg (35.0-45.0); ABG PH 7.444 (7.350-7.450); ABG PO2 59.6 mmHg (75.0-100.0); AaDO2 595.2 mmHg; COHb 0.3 % (0.5-1.5); O2Hb 89.6 % (94.0-97.0); SITE, ABG Right Brachial; VENT MODE, BG HFNC 40L 100% + NRB MASK
--- NOTE | 2021-02-01 16:30 | NUR ---
RN NOTE TRIAL OFF NRB MASK. PATIENT DE SATURATES TO THE 70'S PERSISTENTLY. RESUMED ON THE DOUBLE OXYGEN SETUP.
--- NOTE | 2021-02-01 18:20 | NUR ---
RN NOTES PATIENT REMAINS CONFUSED, ON HFNP 40L WITH 100% FIO2, AND NON RE BREATHER AT 100%. SINUS ARRHYTHMIA WITH PVC'S ON BEDSIDE MONITOR. G TUBE TO JEVITY AT 50ML/HR. PICC NIMO WITH TKO IN PROGRESS. SAFETY CHECKS IN PLACE. WILL ENDORSE TO NIGHT RN FOR CONTINUITY OF CARE.
--- NOTE | 2021-02-01 19:05 | NUR ---
RECEIVED PT ON BED ASLEEP EASY TO WAKE UP, SPO2 ON 88%ON HIGH FLOW O2 40L 100%,NRM 15L DNR/DNI TELE MONITOR READS AFIB 100'S HAVE NIMO PIC DRESSING DRY AND INTACT, HAVE RUC PORTACATH, HAVE GTUBE ON PLACE WITH ONGOING JEVITY @ 50ML/HR RESIDUAL 5ML,BED ON LOWEST POSITION AND LOCKED SIDE RAILS UP X2 CALL LIGHT WITHIN REACH WILL CONT TO MONITOR
[2021-02-01] MEDS: DULOXETINE HCL 30 MG CAPSULE.DR GT SCH (22:16)
[2021-02-02] VITALS (25 sets, daily range): BP systolic 123–173; BP diastolic 64–108
[2021-02-02] MEDS: ALBUTEROL FS 2.5 MG/3 ML VIAL.NEB IH SCH ×4 (01:30→20:01)
[2021-02-02] MEDS: diphenhydrAMINE HCL 50 MG/ML VIAL IV PRN (01:35)
[2021-02-02] MEDS: JEVITY 1.2 CAL 1,000 ML BOTTLE GT PRN (01:39)
[2021-02-02] MEDS: IPRATROPIUM NEB FS 0.5 MG/2.5 ML AMPUL.NEB IH SCH ×4 (01:39→20:01)
[2021-02-02] MEDS: PIPERACILLIN /TAZOBACTAM 3.375 G in IV D5W 100 ML IV SCH ×3 (04:06→20:15)
[2021-02-02] MEDS: HYDROMORPHONE 1 MG/1 ML DISP.SYRIN IV PRN ×3 (04:29→11:45)
[2021-02-02 05:16] LABS: BASOPHILS % (AUTO) 0.1 % (0.0-2.0); HEMATOCRIT 32 % (39-51); HEMOGLOBIN 10.1 g/dL (13.5-17.5); LYMPHOCYTES # (AUTO) 0.1 K/uL (0.8-4.8); LYMPHOCYTES % (AUTO) 1.2 % (20.0-44.0); MEAN CORPUSCULAR HGB CONC 32 g/dl (31.0-36.0); MEAN CORPUSCULAR VOLUME 93 fL (80-96); MONOCYTES # (AUTO) 0.4 K/uL (0.1-1.30); MONOCYTES % (AUTO) 6.3 % (2.0-12.0); NEUTROPHILS # (AUTO) 6.5 K/uL (1.8-8.9); NEUTROPHILS % (AUTO) 92.4 % (43.0-81.0); PLATELET COUNT (AUTO) 327 K/uL (150-450); RED BLOOD CELL COUNT(AUTO) 3.39 MIL/uL (4.5-6.0)
[2021-02-02 05:25] LABS: CALCIUM, SERUM 8.1 mg/dL (8.5-10.1); CREATININE 0.9 mg/dL (0.6-1.3); POTASSIUM 3.7 mmol/L (3.5-5.1)
[2021-02-02 05:29] LABS: IRON, SERUM 29 ug/dl (50-175); TOTAL IRON BINDING CAPACITY 241 ug/dl (250-450)
[2021-02-02] MEDS: VANCOMYCIN 0.75 GM in IV D5W 250 ML IV SCH ×2 (05:37→11:18)
[2021-02-02] MEDS: BLOOD SUGAR DIAGNOSTIC 1 EACH STRIP VI SCH ×4 (06:32→22:00)
[2021-02-02] MEDS: INSULIN REGULAR, HUMAN 100 UNIT/ML 3 ML VIAL SQ PRN ×2 (06:33→18:44)
[2021-02-02 06:35] LABS: FERRITIN 286 ng/mL (8-388)
--- NOTE | 2021-02-02 07:14 | NUR ---
PATIENT REMAINS CONFUSED, ON HFNP 40L WITH 100% FIO2, AND NON RE BREATHER AT 100%. SINUS TACHY WITH PVC'S 110'S ON BEDSIDE MONITOR. G TUBE TO JEVITY AT 50ML/HR. PICC NIMO WITH TKO IN PROGRESS. SAFETY CHECKS IN PLACE. WILL ENDORSE TO AM SHIFT RN FOR CONTINUITY OF CARE.
--- NOTE | 2021-02-02 07:30 | NUR ---
BANKING ASSISTANT OPENING NOTE PT AWAKE IN BED, A/O x3, SEMIFOWLER'S, BREATHING ON HIGH FLOW 40L, FIO2 100%, NRB 15L, SPO2 88% (BASELINE 80s), NO S/S OF RESP DISTRESS OR SOB, BREATHING EVEN AND UNLABORED. PT ON BEDSIDE MONITOR SINUS TACHY, HR 110s. PT HAS NIMO PICC, RUNNING TKO, PIGTAILS FLUSHED, PATENT AND INTACT WITH NO SIGNS OF INFILTRATION/INFECTION. PT GTUBE RUNNING JEVITY @ 50 ML/HR, AUSCULTATED FOR POSITIVE PLACEMENT, PATENT AND INTACT, NO RESDIUALS NOTED. BILAT FOOT AND TOE SKIN TEARS NOTED, RT ANKLE SKIN TEAR COVERED IN MEPILEX, SACRAL SKIN TEAR COVERED IN MEPILEX AND LT ARM DISCOLORATION. PT STATES PAIN 9/10, WILL ADMIN PAIN MEDS ORDERED. ALL PT SAFETY PRECAUTIONS IN PLACE, WILL CONT TO MONITOR
[2021-02-02] MEDS: PANTOPRAZOLE 40 MG/PACK PACK GT SCH (08:11)
[2021-02-02] MEDS: FLUCONAZOLE (100 MG) 100 MG TABLET PO SCH (08:11)
[2021-02-02] MEDS: ASPIRIN 81 MG TAB.CHEW GT SCH (08:11)
[2021-02-02] MEDS: ZINC SULFATE 220 MG CAPSULE PO SCH (08:11)
[2021-02-02] MEDS: FERROUS SULFATE UDC 300 MG/5 ML UDC GT SCH (08:11)
[2021-02-02] MEDS: DOCUSATE SODIUM LIQ 100 MG/10 ML UDC GT SCH ×3 (08:11→17:00)
[2021-02-02] MEDS: GABAPENTIN 100 MG CAPSULE GT SCH ×3 (08:11→18:38)
[2021-02-02] MEDS: CYANOCOBALAMIN 500 MCG TABLET GT SCH (08:11)
[2021-02-02] MEDS: PROSOURCE / PROSTAT (PYXIS) 30 ML UDC GT SCH (08:11)
[2021-02-02] MEDS: CHOLECALCIFEROL 1,000 UNIT TABLET (VIT D3) PO SCH (08:11)
[2021-02-02] MEDS: POLYETHYLENE GLYCOL 3350 17 GM POWD.PACK GT SCH ×2 (08:12→09:00)
[2021-02-02] MEDS: CLOTRIMAZOLE 1% 15 GM TUBE TP SCH ×2 (08:12→18:39)
[2021-02-02] MEDS: ASCORBIC ACID 500 MG TABLET GT SCH (08:12)
[2021-02-02] MEDS: cetrizine 10 MG TABLET GT SCH (08:12)
[2021-02-02] MEDS: methylPREDNISolone SOD SUCC 40 MG/ML VIAL IV SCH ×2 (08:12→20:15)
[2021-02-02] MEDS: THERAHONEY GEL 1.5 OZ TUBE TP SCH (08:13)
[2021-02-02] MEDS: Z GUARD REMEDY 2 OZ OINT TP SCH (08:13)
[2021-02-02] MEDS: MUPIROCIN OINT 2% 22 GM TUBE NS SCH ×2 (08:14→20:22)
[2021-02-02] MEDS: ENOXAPARIN SODIUM 60 MG/0.6 ML DISP.SYRIN SQ SCH ×2 (08:15→21:50)
[2021-02-02] MEDS: DILTIAZEM HCL CD 240 MG PO SCH (11:16)
--- NOTE | 2021-02-02 11:21 | NUR ---
RN NOTE PER PHARMACIST, OK TO GIVE VANCO WITH VONCO TROUGH OF 21
[2021-02-02] MEDS: *INSULIN REGULAR(HUMULIN R)HUM 100 UNIT/ML VIAL SQ PRN ×2 (12:04→22:02)
--- NOTE | 2021-02-02 19:00 | NUR ---
AIRLINE CUSTOMER SERVICE AGENT CLOSING NOTE NO CHANGES TO PT DURING SHIFT. PT STABLE, ON HIGH FLOW NC 40L, FIO2 100%, NRB 15L, SPO2 88-90%. PT IS STABLE ABOVE 80% SPO2 WITH NO S/S OF RESP DISTRESS OR SOB THROUGHOUT SHIFT. ALL PT SAFETY PRECAUTIONS IN PLACE, MAGDIEL ENDORSED TO TERMINAL COMPUTER OPERATOR RN
--- NOTE | 2021-02-02 19:30 | NUR ---
RN NOTE RECEIVED PT A0X2, WATCHING TV. ON HFNC AND NONREBREATHER. O2 SAT AT 90% NO SIGNS OF DISTRESS NOTED. DENIES ANY PAIN AT THIS TIME. GT PATENT AND IN PLACE, ON GT FEEDING OF JEVITY AT 50ML/HR. NO RESIDUALS NOTED. KEPT HOB ELEVATED. TELE SHOWS SR WITH PVCS. PICC LINE PATENT AND INTACT, FLUSHES WELL. ALL SAFETY MEASURES IN PLACE WILL CONTINUE TO MONITOR.
[2021-02-02] MEDS: DULOXETINE HCL 30 MG CAPSULE.DR GT SCH (21:49)
[2021-02-03] VITALS (26 sets, daily range): BP systolic 111–153; BP diastolic 38–113
[2021-02-03] MEDS: HYDROMORPHONE 1 MG/1 ML DISP.SYRIN IV PRN ×3 (01:28→18:32)
[2021-02-03] MEDS: ALBUTEROL FS 2.5 MG/3 ML VIAL.NEB IH SCH ×4 (02:19→19:49)
[2021-02-03] MEDS: IPRATROPIUM NEB FS 0.5 MG/2.5 ML AMPUL.NEB IH SCH ×4 (02:19→19:49)
[2021-02-03] MEDS: PIPERACILLIN /TAZOBACTAM 3.375 G in IV D5W 100 ML IV SCH (03:37)
[2021-02-03] MEDS: JEVITY 1.2 CAL 1,000 ML BOTTLE GT PRN (03:42)
[2021-02-03] MEDS: HYDROCODONE/APAP 5/325MG TABLET GT PRN ×2 (04:30→08:39)
--- NOTE | 2021-02-03 04:36 | NUR ---
rn note pt complaining of generalized pain 12/27, requested for norco. given as ordered. will continue to monitor.
[2021-02-03 05:15] LABS: HEMATOCRIT 32 % (39-51); LYMPHOCYTES # (AUTO) 0.1 K/uL (0.8-4.8); MEAN CORPUSCULAR HGB CONC 32 g/dl (31.0-36.0); MEAN CORPUSCULAR VOLUME 94 fL (80-96); MONOCYTES # (AUTO) 0.5 K/uL (0.1-1.30); MONOCYTES % (AUTO) 5.3 % (2.0-12.0); NEUTROPHILS # (AUTO) 8.2 K/uL (1.8-8.9); NEUTROPHILS % (AUTO) 93.7 % (43.0-81.0); PLATELET COUNT (AUTO) 346 K/uL (150-450); WHITE BLOOD COUNT (AUTO) 8.8 K/uL (4.3-11.0)
[2021-02-03 05:23] LABS: CALCIUM, SERUM 8.1 mg/dL (8.5-10.1); CREATININE 0.8 mg/dL (0.6-1.3); POTASSIUM 3.7 mmol/L (3.5-5.1)
[2021-02-03] MEDS: VANCOMYCIN 0.75 GM in IV D5W 250 ML IV SCH ×2 (05:58→23:35)
[2021-02-03] MEDS: IV NS 0.9% 250 ML IV PRN (06:00)
--- NOTE | 2021-02-03 07:00 | NUR ---
RN NOTES PT REMAINS ON HFNC 40L 100% FI02 WITH NRB AT 15L. NO S/SX OF RESP DISTRESS NOTED. NOTED WITH CONGESTION, PT REFUSING SUCTION. PT DENIES ANY SOB. KEPT HOB ELEVATED.TOLERATING GT FEEDING OF JEVITY, NO RESIDUALS NOTED. NIMO PICC REMAIN PATENT AND INTACT, IV VANCO AND ZOSYN RUNNING, NO S/SX OF INFILTRATION NOTED. KEPT CLEAN DRY AND COMFORTABLE AT ALL TIMES. WILL ENDORSE TO NEXT SHIFT NURSE FOR MAGDIEL.
--- NOTE | 2021-02-03 07:30 | NUR ---
PIERCING ARTIST OPENING NOTE PT AWAKE IN BED, A/O x3, SEMIFOWLER'S, BREATHING ON HIGH FLOW 40L, FIO2 100%, NRB 15L, SPO2 82- 84% (BASELINE 80s), NO S/S OF RESP DISTRESS OR SOB, BREATHING EVEN AND UNLABORED. PT ON BEDSIDE MONITOR SR AND SINUS TACHY, HR 90-100s. PT HAS NIMO PICC, RUNNING TKO, PIGTAILS FLUSHED, PATENT AND INTACT WITH NO SIGNS OF INFILTRATION/INFECTION. PT GTUBE RUNNING JEVITY @ 50 ML/HR, AUSCULTATED FOR POSITIVE PLACEMENT, PATENT AND INTACT, NO RESDIUALS NOTED. BILAT FOOT AND TOE SKIN TEARS NOTED, RT ANKLE SKIN TEAR COVERED IN MEPILEX, SACRAL SKIN TEAR COVERED IN MEPILEX AND LT ARM DISCOLORATION WRAPPED IN DD. PT STATES PAIN 5/10, WILL ADMIN PAIN MEDS ORDERED. ALL PT SAFETY PRECAUTIONS IN PLACE, WILL CONT TO MONITOR
[2021-02-03] MEDS: PANTOPRAZOLE 40 MG/PACK PACK GT SCH (08:21)
[2021-02-03] MEDS: GABAPENTIN 100 MG CAPSULE GT SCH ×4 (08:21→18:25)
[2021-02-03] MEDS: FERROUS SULFATE UDC 300 MG/5 ML UDC GT SCH (08:22)
[2021-02-03] MEDS: ASCORBIC ACID 500 MG TABLET GT SCH (08:22)
[2021-02-03] MEDS: ZINC SULFATE 220 MG CAPSULE PO SCH (08:22)
[2021-02-03] MEDS: DILTIAZEM HCL CD 240 MG PO SCH (08:22)
[2021-02-03] MEDS: CYANOCOBALAMIN 500 MCG TABLET GT SCH (08:22)
[2021-02-03] MEDS: CHOLECALCIFEROL 1,000 UNIT TABLET (VIT D3) PO SCH (08:22)
[2021-02-03] MEDS: FLUCONAZOLE (100 MG) 100 MG TABLET PO SCH (08:22)
[2021-02-03] MEDS: ASPIRIN 81 MG TAB.CHEW GT SCH (08:22)
[2021-02-03] MEDS: cetrizine 10 MG TABLET GT SCH (08:22)
[2021-02-03] MEDS: ENOXAPARIN SODIUM 60 MG/0.6 ML DISP.SYRIN SQ SCH ×2 (08:23→20:23)
[2021-02-03] MEDS: *INSULIN REGULAR(HUMULIN R)HUM 100 UNIT/ML VIAL SQ PRN ×2 (08:24→21:17)
[2021-02-03] MEDS: POLYETHYLENE GLYCOL 3350 17 GM POWD.PACK GT SCH (08:26)
[2021-02-03] MEDS: BLOOD SUGAR DIAGNOSTIC 1 EACH STRIP VI SCH ×4 (08:27→22:37)
[2021-02-03] MEDS: DOCUSATE SODIUM LIQ 100 MG/10 ML UDC GT SCH ×2 (08:27→17:00)
[2021-02-03] MEDS: MUPIROCIN OINT 2% 22 GM TUBE NS SCH ×2 (08:28→20:22)
[2021-02-03] MEDS: PROSOURCE / PROSTAT (PYXIS) 30 ML UDC GT SCH (08:28)
[2021-02-03] MEDS: CLOTRIMAZOLE 1% 15 GM TUBE TP SCH ×2 (08:29→18:26)
[2021-02-03] MEDS: Z GUARD REMEDY 2 OZ OINT TP SCH (08:29)
[2021-02-03] MEDS: THERAHONEY GEL 1.5 OZ TUBE TP SCH (08:30)
[2021-02-03] MEDS: methylPREDNISolone SOD SUCC 40 MG/ML VIAL IV SCH ×2 (08:35→20:21)
[2021-02-03] MEDS: LORAZEPAM INJ 2 MG/ML VIAL IV PRN (11:34)
[2021-02-03] MEDS: MEROPENEM 1 G in IV NS 0.9% 100 ML IV SCH ×2 (12:46→20:21)
--- NOTE | 2021-02-03 13:36 | NUR ---
RT RESP TX'S HELD DUE TO PATIENT HIGH REQUIREMENT OF OXYGEN.UNABLE TO REMOVE HFNC AND NRB MASK DUE TO RAPID DESATURATION. B/C DIM COARSE.
--- NOTE | 2021-02-03 17:15 | NUR ---
RN NOTE PT REFUSED LINEN CHANGE
[2021-02-03] MEDS: INSULIN REGULAR, HUMAN 100 UNIT/ML 3 ML VIAL SQ PRN (18:27)
--- NOTE | 2021-02-03 19:00 | NUR ---
CLOCK SMITH CLOSING NOTE NO CHANGES TO PT DURING SHIFT. PT ON HIGH FLOW NC 40L + NRB 15L, SPO2 RANGES FROM 78-92%, CURRENTLY 85%, NO SOB OR RESP DISTRESS NOTED. ALL PT SAFETY PRECAUTIONS IN PLACE, MAGDIEL ENDORED TO ONCOMING RN
--- NOTE | 2021-02-03 20:00 | NUR ---
FIXER BOARDING ROOM NOTE RECEIVED PT IN BED AWAKE. A/O X 1-2 CONFUSED AT TIMES. NO DISTRESS OR DISCOMFORT NOTED. DENIES PAIN. ON HR 40L FIO2 100% ALSO ALSO O2 15 L NRB MASK, O2 SAT 88%. ON TELE MONITOR SR, S ARRYTHMIAS, PVC AND BBB HR 82. GT INTACT AND PATENT INFUSING JEVITY 50 ML/HR, 0 ML RESIDUAL NOTED. NIMO PICC LINE INTACT AND PATENT. RCW WITH CURT CATH. REPOSITION HIM FOR COMFORT AND SKIN MANAGEMENT. KEPT HIM DRY AND CLEAN. REPOSITION HIM Q2H, ALL NEEDS ATTENDED. CONTINUE TO MONITOR HIM.
[2021-02-03] MEDS: DULOXETINE HCL 30 MG CAPSULE.DR GT SCH (21:14)
[2021-02-03] MEDS: INSULIN GLARGINE, 100 UNIT/ML CARTRIDGE SQ SCH (21:15)
--- NOTE | 2021-02-03 21:21 | NUR ---
RESPIRATORY MEDICINE PHYSICIAN NOTE PT C/O PAIN ALL OVER 01/27, DILAUDID 1 MG IVP GIVEN. CONTINUE TO MONITOR HIM.
--- NOTE | 2021-02-03 21:51 | NUR ---
TREKKING GUIDE NOTE PAIN SUBSIDED 2/10 PT FALLING ASLEEP. CONTINUE TO MONITOR HIM.
[2021-02-04] VITALS (24 sets, daily range): BP systolic 119–169; BP diastolic 61–95
[2021-02-04] MEDS: JEVITY 1.2 CAL 1,000 ML BOTTLE GT PRN ×2 (01:17→18:30)
[2021-02-04] MEDS: ALBUTEROL FS 2.5 MG/3 ML VIAL.NEB IH SCH ×4 (01:35→19:44)
[2021-02-04] MEDS: IPRATROPIUM NEB FS 0.5 MG/2.5 ML AMPUL.NEB IH SCH ×4 (01:36→19:44)
[2021-02-04] MEDS: MEROPENEM 1 G in IV NS 0.9% 100 ML IV SCH ×3 (03:26→20:04)
[2021-02-04 04:41] LABS: BASOPHILS # (AUTO) 0.1 K/uL (0.0-0.2); BASOPHILS % (AUTO) 0.5 % (0.0-2.0); HEMATOCRIT 32 % (39-51); HEMOGLOBIN 10.1 g/dL (13.5-17.5); LYMPHOCYTES # (AUTO) 0.1 K/uL (0.8-4.8); MEAN CORPUSCULAR HGB CONC 32 g/dl (31.0-36.0); MEAN CORPUSCULAR VOLUME 94 fL (80-96); MONOCYTES # (AUTO) 0.3 K/uL (0.1-1.30); NEUTROPHILS # (AUTO) 10.5 K/uL (1.8-8.9); NEUTROPHILS % (AUTO) 95.5 % (43.0-81.0); PLATELET COUNT (AUTO) 348 K/uL (150-450); RED BLOOD CELL COUNT(AUTO) 3.41 MIL/uL (4.5-6.0)
[2021-02-04 04:58] LABS: CALCIUM, SERUM 8.5 mg/dL (8.5-10.1); CREATININE 0.8 mg/dL (0.6-1.3)
[2021-02-04] MEDS: IV NS 0.9% 250 ML IV PRN (06:00)
[2021-02-04] MEDS: HYDROMORPHONE 1 MG/1 ML DISP.SYRIN IV PRN ×4 (06:20→19:12)
--- NOTE | 2021-02-04 06:22 | NUR ---
HEEL SCOURER NOTE PT IN BED AWAKE. C/O PAIN ALL OVER 01/27 DILAUDID 1 MG IVP GIVEN. GTF INFUSING WELL, 0 ML RESIDUAL NOTED. PT REMAIN ON HF AND NRB MASK O2 SAT IN 80'S. NO SOB NOTED. ALL NEEDS ATTENDED. ON TELE MONITOR SR, S ARRYTHEMIA WITH PVC AND BBB HR 8O REPOSITION HIM Q2H, KEPT HIM DRY AND CLEAN. ALL NEEDS ATTENDED. WILL ENDORSE TO DAY SHIFT NURSE FOR CONTINUE TO CARE.
--- NOTE | 2021-02-04 07:10 | NUR ---
RN OPENING NOTES RECEIVED PT AWAKE, A/O X2-3. ON HFNC AND NONREBREATHER. NO SOB OR ANY S/S OF RESPIRATORY DISTRESS NOTED. NO PAIN REPORTED AT THIS TIME. GT IN PLACE, CHECKED FOR POSITIVE PLACEMENT. NO RESIDUAL. FEEDING OF JEVITY @50ML/HR. PICC LINE INTACT, PATENT AND FLUSHED. SAFETY MEASURES IN PLACE. CALL LIGHT WITHIN REACH. KEPT HOB ELEVATED. BED LOCKED AND IN LOWEST POSITION WITH SIDE RAILS UP X3. WILL CONTINUE TO MONITOR.
[2021-02-04] MEDS: BLOOD SUGAR DIAGNOSTIC 1 EACH STRIP VI SCH ×4 (08:08→21:15)
[2021-02-04] MEDS: FERROUS SULFATE UDC 300 MG/5 ML UDC GT SCH (08:29)
[2021-02-04] MEDS: DOCUSATE SODIUM LIQ 100 MG/10 ML UDC GT SCH ×2 (08:29→16:40)
[2021-02-04] MEDS: CYANOCOBALAMIN 500 MCG TABLET GT SCH (08:29)
[2021-02-04] MEDS: cetrizine 10 MG TABLET GT SCH (08:29)
[2021-02-04] MEDS: FLUCONAZOLE (100 MG) 100 MG TABLET PO SCH (08:29)
[2021-02-04] MEDS: POLYETHYLENE GLYCOL 3350 17 GM POWD.PACK GT SCH (08:29)
[2021-02-04] MEDS: CHOLECALCIFEROL 1,000 UNIT TABLET (VIT D3) PO SCH (08:30)
[2021-02-04] MEDS: PANTOPRAZOLE 40 MG/PACK PACK GT SCH (08:30)
[2021-02-04] MEDS: ASPIRIN 81 MG TAB.CHEW GT SCH (08:30)
[2021-02-04] MEDS: DILTIAZEM HCL CD 240 MG PO SCH (08:30)
[2021-02-04] MEDS: ZINC SULFATE 220 MG CAPSULE PO SCH (08:30)
[2021-02-04] MEDS: methylPREDNISolone SOD SUCC 40 MG/ML VIAL IV SCH ×2 (08:30→21:07)
[2021-02-04] MEDS: ASCORBIC ACID 500 MG TABLET GT SCH (08:30)
[2021-02-04] MEDS: PROSOURCE / PROSTAT (PYXIS) 30 ML UDC GT SCH (08:42)
[2021-02-04] MEDS: MUPIROCIN OINT 2% 22 GM TUBE NS SCH ×2 (08:42→21:07)
[2021-02-04] MEDS: CLOTRIMAZOLE 1% 15 GM TUBE TP SCH ×2 (08:43→16:41)
[2021-02-04] MEDS: Z GUARD REMEDY 2 OZ OINT TP SCH (08:43)
[2021-02-04] MEDS: THERAHONEY GEL 1.5 OZ TUBE TP SCH (08:43)
[2021-02-04] MEDS: ENOXAPARIN SODIUM 60 MG/0.6 ML DISP.SYRIN SQ SCH ×2 (08:46→21:11)
[2021-02-04] MEDS: INSULIN REGULAR, HUMAN 100 UNIT/ML 3 ML VIAL SQ PRN ×3 (08:47→17:41)
[2021-02-04] MEDS: GABAPENTIN 100 MG CAPSULE GT SCH ×3 (09:07→16:40)
[2021-02-04 09:26] LABS: ABG BASE EXCESS 14.8 mmol/L; ABG OXYGEN SATURATION 81.1 % (92.0-98.5); ABG PCO2 57.2 mmHg (35.0-45.0); ABG PO2 44.1 mmHg (75.0-100.0); AaDO2 611.7 mmHg; COHb 0.8 % (0.5-1.5); MetHb 0.2 % (0.0-1.5); O2Hb 80.3 % (94.0-97.0); SITE, ABG Right Radial; VENT MODE, BG high flow 100%+NRM
--- NOTE | 2021-02-04 09:46 | NUR ---
patient refuse to place on bipap. charge nurse and dr. mosley notified. Addendum: 02/04/21 at 0948 by CHAKA NOGUERA RT Amended: Links added.
[2021-02-04] MEDS: LORAZEPAM INJ 2 MG/ML VIAL IV PRN ×2 (10:48→22:31)
[2021-02-04] MEDS: VANCOMYCIN 0.75 GM in IV D5W 250 ML IV SCH (17:58)
--- NOTE | 2021-02-04 18:46 | NUR ---
RN CLOSING NOTEs NO SIGMNIFICANT CHANGES THROUGHOUT THE SHIFT. ON HFNC 40L + NRB 15L. NO SOB OR ANY DISTRESS NOTED. PT REFUSED BIPAP, AWARE. NO PAIN REPORTED AT THIS TIME. SAFETY MEASURES MAINTAINED. WILL ENDORSE TO NIGHT RN FOR MAGDIEL.
--- NOTE | 2021-02-04 19:29 | NUR ---
RN NOTE PATIENT IN BED WITH HEAD OF BED ELEVATED. ALERT AND ORIENTED X3. ABLE TO MAKE NEEDS KNOWN. ON HF 40L 100% FIO2 AND NON-REBREATHER 15L. NO SOB OR ANY ACUTE DISTRESS. REFUSING BIPAPMD AWARE. ON G-TUBE JEVITY 50ML/HR. WITH NIMO PICC LINE PATENT AND INTACT. NO SIGNS OF INFILTRATION. BED LOCKED AND IN LOWEST POSITION. CALL LIGHT WITHIN REACH. ALL NEEDS ANTICIPATED.
[2021-02-04] MEDS: *INSULIN REGULAR(HUMULIN R)HUM 100 UNIT/ML VIAL SQ PRN (21:12)
[2021-02-04] MEDS: INSULIN GLARGINE, 100 UNIT/ML CARTRIDGE SQ SCH (21:13)
[2021-02-04] MEDS: DULOXETINE HCL 30 MG CAPSULE.DR GT SCH (21:15)
[2021-02-05] VITALS (25 sets, daily range): BP systolic 102–160; BP diastolic 67–96
[2021-02-05] MEDS: ALBUTEROL FS 2.5 MG/3 ML VIAL.NEB IH SCH ×4 (01:21→19:42)
[2021-02-05] MEDS: IPRATROPIUM NEB FS 0.5 MG/2.5 ML AMPUL.NEB IH SCH ×4 (01:21→19:42)
[2021-02-05] MEDS: HYDROMORPHONE 1 MG/1 ML DISP.SYRIN IV PRN ×5 (02:03→21:02)
[2021-02-05] MEDS: MEROPENEM 1 G in IV NS 0.9% 100 ML IV SCH (03:10)
[2021-02-05 04:32] LABS: CALCIUM, SERUM 8.4 mg/dL (8.5-10.1); CREATININE 0.6 mg/dL (0.6-1.3); POTASSIUM 3.7 mmol/L (3.5-5.1)
--- NOTE | 2021-02-05 06:38 | NUR ---
RN NOTE PATIENT RESTING IN BED. CONTINUES ON HF 40L 100% FIO2 AND 15 L NON-REBREATHER MASK, O2 SAT IN THE 80'S. ALL DUE MEDS GIVEN ORDERED. TURNED AND REPOSITIONED Q2H. KEPT CLEAN AND DRY. SAFETY MEASURES MAINTAINED. WILL ENDORSE TO AM SHIFT.
[2021-02-05] MEDS: ZINC SULFATE 220 MG CAPSULE PO SCH (08:12)
[2021-02-05] MEDS: FLUCONAZOLE (100 MG) 100 MG TABLET PO SCH (08:12)
[2021-02-05] MEDS: CYANOCOBALAMIN 500 MCG TABLET GT SCH (08:12)
[2021-02-05] MEDS: FERROUS SULFATE UDC 300 MG/5 ML UDC GT SCH (08:12)
[2021-02-05] MEDS: methylPREDNISolone SOD SUCC 40 MG/ML VIAL IV SCH ×2 (08:12→21:12)
[2021-02-05] MEDS: cetrizine 10 MG TABLET GT SCH (08:12)
[2021-02-05] MEDS: ASPIRIN 81 MG TAB.CHEW GT SCH (08:12)
[2021-02-05] MEDS: CHOLECALCIFEROL 1,000 UNIT TABLET (VIT D3) PO SCH (08:12)
[2021-02-05] MEDS: POLYETHYLENE GLYCOL 3350 17 GM POWD.PACK GT SCH (08:12)
[2021-02-05] MEDS: DILTIAZEM HCL CD 240 MG PO SCH (08:13)
[2021-02-05] MEDS: DOCUSATE SODIUM LIQ 100 MG/10 ML UDC GT SCH ×2 (08:13→16:26)
[2021-02-05] MEDS: BLOOD SUGAR DIAGNOSTIC 1 EACH STRIP VI SCH ×4 (08:14→21:17)
[2021-02-05] MEDS: GABAPENTIN 100 MG CAPSULE GT SCH ×3 (08:14→16:26)
[2021-02-05] MEDS: PANTOPRAZOLE 40 MG/PACK PACK GT SCH (08:14)
[2021-02-05] MEDS: ASCORBIC ACID 500 MG TABLET GT SCH (08:16)
[2021-02-05] MEDS: INSULIN REGULAR, HUMAN 100 UNIT/ML 3 ML VIAL SQ PRN ×3 (08:38→18:22)
[2021-02-05] MEDS: ENOXAPARIN SODIUM 60 MG/0.6 ML DISP.SYRIN SQ SCH ×2 (08:38→21:15)
[2021-02-05] MEDS: MUPIROCIN OINT 2% 22 GM TUBE NS SCH (09:53)
[2021-02-05] MEDS: PROSOURCE / PROSTAT (PYXIS) 30 ML UDC GT SCH (09:53)
[2021-02-05] MEDS: CLOTRIMAZOLE 1% 15 GM TUBE TP SCH ×2 (09:54→16:26)
[2021-02-05] MEDS: Z GUARD REMEDY 2 OZ OINT TP SCH (09:54)
[2021-02-05] MEDS: THERAHONEY GEL 1.5 OZ TUBE TP SCH (09:54)
--- NOTE | 2021-02-05 11:00 | NUR ---
Patient assessed by Dr Rosado and per md to keep patient comfortable and he will increase ativan's dosage. MD asked if patient can be given anxiety med and pain med at the same time due to patient being anxious and c/o pain. MD approved and patient's rr of 17.
[2021-02-05] MEDS: LORAZEPAM INJ 2 MG/ML VIAL IV PRN ×3 (11:04→23:59)
[2021-02-05] MEDS: JEVITY 1.2 CAL 1,000 ML BOTTLE GT PRN (13:16)
[2021-02-05 13:20] LABS: BASOPHILS % (AUTO) 0.4 % (0.0-2.0); HEMATOCRIT 33 % (39-51); LYMPHOCYTES # (AUTO) 0.1 K/uL (0.8-4.8); LYMPHOCYTES % (AUTO) 0.4 % (20.0-44.0); MEAN CORPUSCULAR HGB CONC 30 g/dl (31.0-36.0); MEAN CORPUSCULAR VOLUME 95 fL (80-96); MONOCYTES # (AUTO) 0.4 K/uL (0.1-1.30); MONOCYTES % (AUTO) 3.2 % (2.0-12.0); NEUTROPHILS # (AUTO) 12.8 K/uL (1.8-8.9); PLATELET COUNT (AUTO) 342 K/uL (150-450); RED BLOOD CELL COUNT(AUTO) 3.45 MIL/uL (4.5-6.0); WHITE BLOOD COUNT (AUTO) 13.4 K/uL (4.3-11.0)
[2021-02-05 13:35] LABS: BILIRUBIN,DIRECT 0.1 mg/dL (0.0-0.2); BILIRUBIN,TOTAL 0.3 mg/dL (0.2-1.0); TOTAL PROTEIN, SERUM 5.4 g/dL (6.4-8.2)
--- NOTE | 2021-02-05 19:22 | NUR ---
RUSSIAN LANGUAGE INSTRUCTOR CLOSING NOTES Patient is alert and responsive to verbal and physical stimuli. On both non rebreather and high flow nasal canula. Patient given prn anxiety med and pain med. Patient noted to be anxious and restless and c./o pain during shift. Noted with voiding x 4 during shift. On jevity at 50 cc/hour ras well with 5 cc residual noted. HOB kept elevated. Patient educated to not remove mask and nasal cannula several times during shift. Endorsed to next shift. Call light with in reach.
--- NOTE | 2021-02-05 19:55 | NUR ---
RN NOTE PATIENT IN BED RESTING COMFORTABLY, RESPONSIVE TO TACTILE AND VERBAL STIMULI. ON HIGH FLOW 40L 100% FIO2 AND NON-REBREATHER MASK 15L. O2 SAT 70'S. NO SIGNS OF PAIN AT THIS TIME. G-TUBE RUNNING JEVITY @ 50ML/HR, NOTED WITH 150 RESIDUAL. FEEDING HELD AT THIS TIME. HOB KEPT ELEVATED. SAFETY MEASURES MAINTAINED. ALL NEEDS ANTICIPATED.
[2021-02-05] MEDS: DULOXETINE HCL 30 MG CAPSULE.DR GT SCH (21:12)
[2021-02-05] MEDS: INSULIN GLARGINE, 100 UNIT/ML CARTRIDGE SQ SCH (21:16)
[2021-02-05] MEDS: *INSULIN REGULAR(HUMULIN R)HUM 100 UNIT/ML VIAL SQ PRN (21:16)
[2021-02-06] VITALS (27 sets, daily range): BP systolic 113–188; BP diastolic 59–142
[2021-02-06] MEDS: ALBUTEROL FS 2.5 MG/3 ML VIAL.NEB IH SCH ×4 (01:29→19:50)
[2021-02-06] MEDS: IPRATROPIUM NEB FS 0.5 MG/2.5 ML AMPUL.NEB IH SCH ×4 (01:29→19:50)
[2021-02-06] MEDS: HYDROMORPHONE 1 MG/1 ML DISP.SYRIN IV PRN ×4 (03:49→20:26)
[2021-02-06 04:16] LABS: BASOPHILS % (AUTO) 0.1 % (0.0-2.0); HEMATOCRIT 34 % (39-51); HEMOGLOBIN 10.4 g/dL (13.5-17.5); LYMPHOCYTES # (AUTO) 0.1 K/uL (0.8-4.8); LYMPHOCYTES % (AUTO) 0.7 % (20.0-44.0); MEAN CORPUSCULAR HGB CONC 31 g/dl (31.0-36.0); MEAN CORPUSCULAR VOLUME 94 fL (80-96); MONOCYTES # (AUTO) 0.6 K/uL (0.1-1.30); MONOCYTES % (AUTO) 3.6 % (2.0-12.0); NEUTROPHILS # (AUTO) 14.7 K/uL (1.8-8.9); NEUTROPHILS % (AUTO) 95.6 % (43.0-81.0); PLATELET COUNT (AUTO) 350 K/uL (150-450); RED BLOOD CELL COUNT(AUTO) 3.56 MIL/uL (4.5-6.0); WHITE BLOOD COUNT (AUTO) 15.4 K/uL (4.3-11.0)
[2021-02-06 05:22] LABS: CALCIUM, SERUM 8.3 mg/dL (8.5-10.1); CREATININE 0.6 mg/dL (0.6-1.3); POTASSIUM 4.2 mmol/L (3.5-5.1)
--- NOTE | 2021-02-06 06:36 | NUR ---
RN NOTE PATIENT SLEEPING IN BED, EASILY AROUSED. CONTINUES ON HIGH FLOW 40L 100% AND NON-REBREATHER MASK 15L, O2 SAT 85%. ON JEVITY @ 50ML/HR, NO RESIDUAL NOTED. HOB KEPT ELEVATED. PATIENT RESTLESS AND C/O OF PAIN OVER NIGHT, RELIEVED BY PRN PAIN AND ANXIETY MEDS. TURNED AND REPOSITION. KEPT CLEAN AND DRY. SAFETY MEASURES MAINTAINED. WILL ENDORSE TO AM SHIFT.
[2021-02-06] MEDS: BLOOD SUGAR DIAGNOSTIC 1 EACH STRIP VI SCH ×4 (07:30→21:38)
--- NOTE | 2021-02-06 07:30 | NUR ---
RETAIL BEAUTY SPECIALIST NOTES RECEIVED PATIENT IN BED RESTING, EASILY AROUSED. ON HIGH FLOW 40L 100% AND NON-REBREATHER MASK 15L, O2 SAT 82%. DNR/DNI. ON JEVITY @ 50ML/HR, SAFETY MEASURES MAINTAINED. WILL CONTINUE TO MONITOR.
[2021-02-06] MEDS: DOCUSATE SODIUM LIQ 100 MG/10 ML UDC GT SCH ×2 (08:25→16:19)
[2021-02-06] MEDS: CHOLECALCIFEROL 1,000 UNIT TABLET (VIT D3) PO SCH (08:26)
[2021-02-06] MEDS: methylPREDNISolone SOD SUCC 40 MG/ML VIAL IV SCH (08:27)
[2021-02-06] MEDS: ASCORBIC ACID 500 MG TABLET GT SCH (08:27)
[2021-02-06] MEDS: DILTIAZEM HCL CD 240 MG PO SCH (08:27)
[2021-02-06] MEDS: CYANOCOBALAMIN 500 MCG TABLET GT SCH (08:27)
[2021-02-06] MEDS: FERROUS SULFATE UDC 300 MG/5 ML UDC GT SCH (08:27)
[2021-02-06] MEDS: PANTOPRAZOLE 40 MG/PACK PACK GT SCH (08:27)
[2021-02-06] MEDS: ASPIRIN 81 MG TAB.CHEW GT SCH (08:27)
[2021-02-06] MEDS: FLUCONAZOLE (100 MG) 100 MG TABLET PO SCH (08:27)
[2021-02-06] MEDS: ZINC SULFATE 220 MG CAPSULE PO SCH (08:28)
[2021-02-06] MEDS: cetrizine 10 MG TABLET GT SCH (08:28)
[2021-02-06] MEDS: GABAPENTIN 100 MG CAPSULE GT SCH ×3 (08:28→16:19)
[2021-02-06] MEDS: POLYETHYLENE GLYCOL 3350 17 GM POWD.PACK GT SCH (08:28)
[2021-02-06] MEDS: ENOXAPARIN SODIUM 60 MG/0.6 ML DISP.SYRIN SQ SCH (08:29)
[2021-02-06] MEDS: CLOTRIMAZOLE 1% 15 GM TUBE TP SCH ×2 (08:30→16:20)
[2021-02-06] MEDS: THERAHONEY GEL 1.5 OZ TUBE TP SCH (08:30)
[2021-02-06] MEDS: Z GUARD REMEDY 2 OZ OINT TP SCH (08:30)
[2021-02-06] MEDS: PROSOURCE / PROSTAT (PYXIS) 30 ML UDC GT SCH (08:31)
[2021-02-06] MEDS: INSULIN REGULAR, HUMAN 100 UNIT/ML 3 ML VIAL SQ PRN ×3 (09:34→19:05)
--- NOTE | 2021-02-06 10:00 | NUR ---
ACCESS CONTROL SPECIALIST NOTES SEEN AND EXAMINED BY BESSIE PANDEY AT THIS TIME.
[2021-02-06] MEDS: METOPROLOL TARTRATE 25 MG TABLET PO SCH ×2 (10:23→21:32)
--- NOTE | 2021-02-06 11:00 | NUR ---
NETWORK SUPPORT NOTES FAMILY CALLED AND UPDATES REGARDING STATUS GIVEN. WILL CONTINUE TO MONITOR.
[2021-02-06] MEDS: JEVITY 1.2 CAL 1,000 ML BOTTLE GT PRN (14:20)
--- NOTE | 2021-02-06 19:00 | NUR ---
PERSONAL INJURY ATTORNEY NOTES PATIENT IN BED RESTING, EASILY AROUSED. ON HIGH FLOW 40L 100% AND NON-REBREATHER MASK 15L, O2 SAT 88%. DNR/DNI. WILL ENDORSE TO MANAGER SWITCH NURSE FOR MAGDIEL.
--- NOTE | 2021-02-06 19:00 | NUR ---
RN NOTE RECEIVED PATIENT IN BED, LETHARGIC, IN NO S/SX OF ACUTE DISTRESS AT THIS TIME. ON HIGH FLOW NC AT 40LPM 100% FIO2, AND NON REBREATHER MASK AT 15 LPM, SATURATION AT 86%, SR WITH PAC'S ON THE MONITOR, HR IS 69. NOTED NIMO PICC LINE, ALL HUBS PATENT AND FLUSHING WELL, AND CURT CATH AT R CHEST WALL,NO S/S OF INFECTION. GTUBE INTACT POSITIVE PLACEMENT NOTED, NO RESIDUAL, WITH TUBE FEEDING OF JEVITY AT 40 ML/HR. SAFETY MEASURES IMPLEMENTED. PATIENT BED ALARM IS ON. HEAD OF BED ELEVATED. BED IS LOCKED, IN LOWEST POSITION AND SIDE RAILS UP. CALL LIGHT WITHIN REACH OF THE PATIENT. WILL CONTINUE TO MONITOR AND REASSESS FOR ANY CHANGES.
--- NOTE | 2021-02-06 20:13 | NUR ---
RECEIVED PT ON HFNC 40L, 100% + NRB. O2 SAT 80%-85% RN AWARE. CONTINUE TO MONITOR.
[2021-02-06] MEDS ORDERED: ENOXAPARIN SODIUM 60 MG/0.6 ML DISP.SYRIN SQ SCH (21:00)
[2021-02-06] MEDS: DULOXETINE HCL 30 MG CAPSULE.DR GT SCH (21:33)
[2021-02-06] MEDS: INSULIN GLARGINE, 100 UNIT/ML CARTRIDGE SQ SCH (21:38)
--- NOTE | 2021-02-06 22:00 | NUR ---
RN NOTE NOTED PT SATURATION AT HIGH 70'S TO LOW 80'S. ELEVATED HOB FURTHER, SUCTIONING WAS DONE, SMALL AMOUNT OF SECRETION NOTED, PULSE OX SENSOR WAS CHANGED, STILL NO IMPROVEMENT WITH SATURATION. PT ON DNR/DNI STATUS. DR HUDDLESTON WAS MADE AWARE.
[2021-02-07] VITALS (9 sets, daily range): BP systolic 0–149; BP diastolic 0–77
[2021-02-07] MEDS: ALBUTEROL FS 2.5 MG/3 ML VIAL.NEB IH SCH (01:03)
[2021-02-07] MEDS: IPRATROPIUM NEB FS 0.5 MG/2.5 ML AMPUL.NEB IH SCH (01:03)
[2021-02-07 04:46] LABS: BASOPHILS # (AUTO) 0.1 K/uL (0.0-0.2); BASOPHILS % (AUTO) 0.2 % (0.0-2.0); HEMATOCRIT 35 % (39-51); HEMOGLOBIN 10.8 g/dL (13.5-17.5); LYMPHOCYTES # (AUTO) 0.2 K/uL (0.8-4.8); LYMPHOCYTES % (AUTO) 0.7 % (20.0-44.0); MEAN CORPUSCULAR HGB CONC 31 g/dl (31.0-36.0); MEAN CORPUSCULAR VOLUME 96 fL (80-96); MONOCYTES # (AUTO) 0.9 K/uL (0.1-1.30); MONOCYTES % (AUTO) 2.6 % (2.0-12.0); NEUTROPHILS # (AUTO) 34.2 K/uL (1.8-8.9); NEUTROPHILS % (AUTO) 96.5 % (43.0-81.0); PLATELET COUNT (AUTO) 395 K/uL (150-450); RED BLOOD CELL COUNT(AUTO) 3.71 MIL/uL (4.5-6.0)
[2021-02-07 05:01] LABS: CALCIUM, SERUM 8.4 mg/dL (8.5-10.1); CHLORIDE 107 mmol/L (98-107); CREATININE 0.6 mg/dL (0.6-1.3); GLUCOSE 146 mg/dL (74-106); POTASSIUM 4.6 mmol/L (3.5-5.1); SODIUM SERUM 149 mmol/L (136-145); UREA NITROGEN, BLOOD 28 mg/dL (7-18)
[2021-02-07 05:28] LABS: CARBON DIOXIDE > 45 mmol/L (21-32)
--- NOTE | 2021-02-07 05:30 | NUR ---
RN NOTE CRITICAL LAB RESULT RECEIVED FROM JOSUE/BRIAN OF LAB: CO2 >45, WBC 35.4. DR FERNANDO WAS NOTIFIED, NO NEW ORDERS RECEIVED.
[2021-02-07 05:31] LABS: BAND % (MANUAL) 11 % (0.0-5.0); BASOPHILS % (MANUAL) 0 % (0.0-2.0); EOSINOPHILS % (MANUAL) 0 % (0-4); LYMPHOCYTES % (MANUAL) 1 % (16-48); MONOCYTES % (MANUAL) 4 % (0-11.0); NEUTROPHILS % (MANUAL) 84 (42-76)
[2021-02-07 05:33] LABS: WHITE BLOOD COUNT (AUTO) 35.4 K/uL (4.3-11.0)
--- NOTE | 2021-02-07 07:22 | NUR ---
RN NOTE PT IN BED, NO SIGN OF ACUTE DISTRESS, STILL ON 40 LPM 100% FIO2 ON HIGH FLOW NC AND 15 LPM VIA NRB, SATURATION AT 98%, JEVITY RUNNING AT 50 ML/HR. ENDORSED TO CALIXTO BRIAN FOR MAGDIEL.
--- NOTE | 2021-02-07 07:30 | NUR ---
ICU/RN PT IS LETHARGIC ON HI-FLOW 02-100% AND ON NRM-15L. SAT O2-91%.AGONAL BREATHING.BP STABLE.IV-HL .G-TUBE INFUSING JEVITY .NO RESIDUAL .PT IS DNR/DNI.
--- NOTE | 2021-02-07 07:50 | NUR ---
ICU/RN PT HAS NO PALPABLE PULSES,ASYSTOLE ON MONITOR.NO RESPIRATIONS,NO BLOOD PRESSURE..PUPILS ARE FIX AND DILATED.NO CHEST MOVEMENTS.CHARGE NURSE NOTIFIED-SULEMAN CastilloPRONOUNCED BY SULEMAN/RN AND CALIXTO/RN. DR FERNANDO NOTIFIED.FAMILY NOTIFIED-KHALIDA ESPAÑA - DAUGHTER.[phone]. FAMILY HAS NO MORTUARY ARRANGEMENT AT THIS TIME.ALL INFO PROVIDED.CONVENTIONS ASSISTANT YASMINE NOTIFIED. POST MORTEM CARE DONE . [facility] NOTIFIED CASE NUMBER IS [id number].ADMITTING OFFICE NOTIFIED.
[2021-02-07] MEDS ORDERED: methylPREDNISolone SOD SUCC 40 MG/ML VIAL IV SCH (09:00)
--- NOTE | 2021-02-07 09:50 | NUR ---
ICU/RN BODY SENT TO [facility].
== END 2021-02-07 10:39 | DRG 871 ==
LOC: ER 05:16 → TRANSITION 08:30 → ICU 08:42
PROVIDERS: ADMIT Internal Medicine; ATTEND Internal Medicine
PROC: 02HV33Z Insertion of Infusion Device into Superior Vena Cava, Percutaneous Approach (ICD-10-PCS; principal; 2021-01-26)
PROC: B548ZZA Ultrasonography of Superior Vena Cava, Guidance (ICD-10-PCS; 2021-01-26)
DX: A41.9 Sepsis, unspecified organism (principal); L89.513 Pressure ulcer of right ankle, stage 3; J69.0 Pneumonitis due to inhalation of food and vomit; I26.99 Other pulmonary embolism without acute cor pulmonale; R65.21 Severe sepsis with septic shock; I21.A1 Myocardial infarction type 2; E43 Unspecified severe protein-calorie malnutrition; J96.22 Acute and chronic respiratory failure with hypercapnia; J96.21 Acute and chronic respiratory failure with hypoxia; J44.0 Chronic obstructive pulmonary disease with (acute) lower respiratory infection; I69.354 Hemiplegia and hemiparesis following cerebral infarction affecting left non-dominant side; D84.9 Immunodeficiency, unspecified; E87.0 Hyperosmolality and hypernatremia; I42.9 Cardiomyopathy, unspecified; C78.02 Secondary malignant neoplasm of left lung; C78.01 Secondary malignant neoplasm of right lung; I50.40 Unspecified combined systolic (congestive) and diastolic (congestive) heart failure; J44.1 Chronic obstructive pulmonary disease with (acute) exacerbation; R13.10 Dysphagia, unspecified; Z20.822 Contact with and (suspected) exposure to COVID-19; C13.9 Malignant neoplasm of hypopharynx, unspecified; Z66 Do not resuscitate; I48.91 Unspecified atrial fibrillation; K21.9 Gastro-esophageal reflux disease without esophagitis; F41.9 Anxiety disorder, unspecified; Z79.01 Long term (current) use of anticoagulants; Z79.899 Other long term (current) drug therapy; F29 Unspecified psychosis not due to a substance or known physiological condition; D47.2 Monoclonal gammopathy; D63.8 Anemia in other chronic diseases classified elsewhere; D50.9 Iron deficiency anemia, unspecified; F32.9 Major depressive disorder, single episode, unspecified; Z93.1 Gastrostomy status; G89.29 Other chronic pain; G62.9 Polyneuropathy, unspecified; I73.9 Peripheral vascular disease, unspecified; Z87.891 Personal history of nicotine dependence; Z92.21 Personal history of antineoplastic chemotherapy; Z92.3 Personal history of irradiation; Z74.01 Bed confinement status; L89.890 Pressure ulcer of other site, unstageable; M62.562 Muscle wasting and atrophy, not elsewhere classified, left lower leg; M62.561 Muscle wasting and atrophy, not elsewhere classified, right lower leg; I11.0 Hypertensive heart disease with heart failure; E86.0 Dehydration; T50.2X5A Adverse effect of carbonic-anhydrase inhibitors, benzothiadiazides and other diuretics, initial encounter; Y92.9 Unspecified place or not applicable; B37.9 Candidiasis, unspecified
CPT/HCPCS: 31720; 36415; 36569; 36600; 38221; 71045-TC; 80048-TC; 80076-TC; 80202-TC; 82728-TC; 82803-TC; 82962-TC; 83540-TC; 83605-TC; 83880; 84484-TC; 85025-TC; 85027-TC; 85730-TC; 87040-TC; 87070-TC; 87081-TC; 94003-TC; 94640-TC; 94760-TC; 94799-TC; A6253; C9803; G0378; J0282; J1160; J1170; J1200; J1650; J1815; J1940; J2060; J2185; J2543; J2920; J2930; J3370; J3490; J7030; J7050; J7060; Q9967; U0003